=== PATIENT | female | born 1990 | race American Indian/Alaskan Native ===

== ENCOUNTER 2019-01-04 14:50 | Outpatient (CLI) | payer OTHER, MEDICAID ==
[2019-01-04 15:56] LABS: Hematocrit 32.8 % (30.3-42.9); Hemoglobin 11.3 gm/dl (10.1-14.3); Mean Corpuscular HGB Conc 35 % (30-34); Mean Corpuscular Volume 77 fl (79-97); Platelet Count 250 K/mm3 (140-440); Red Blood Count 4.26 M/mm3 (3.65-5.03); Red Cell Distribution Width 13.9 % (13.2-15.2)
[2019-01-04] MEDS ORDERED: LACTATED RINGERS 500 ML IV ONE (16:29)
[2019-01-04 16:33] LABS: Alanine Aminotransferase 12 units/L (7-56); Uric Acid 4.1 mg/dL (3.5-7.6)
[2019-01-04 17:01] LABS: Bilirubin,Urine NEG (Negative); Blood,Urine SM (Negative); Color,Urine Yellow (Yellow); Mucus,Urine FEW /HPF; Protein,Urine <15 mg/dL mg/dL (Negative); RBC,Urine < 1.0 /HPF (0.0-6.0); Urobilinogen,Urine < 2.0 mg/dL (<2.0)
[2019-01-04 17:04] VITALS: BP 136/84
== END 2019-01-04 17:31 | disposition home or self-care (01) ==
LOC: TRG 14:50
PROVIDERS: ATTEND Obstetrics & Gynecology
DX: O47.02 False labor before 37 completed weeks of gestation, second trimester (principal); O13.3 Gestational [pregnancy-induced] hypertension without significant proteinuria, third trimester; Z3A.26 26 weeks gestation of pregnancy
CPT/HCPCS: 36415; 59025; 81001; 82565; 83615; 84450; 84460; 84550; 85027

== ENCOUNTER 2019-01-16 17:25 | Outpatient (CLI) | payer OTHER, MEDICAID ==
[2019-01-16 19:00] LABS: Amorphous Crystals,Urine 1+; Bacteria,Urine 2+ /HPF (Negative); Bilirubin,Urine NEG (Negative); Blood,Urine SM (Negative); Color,Urine Yellow (Yellow); Mucus,Urine FEW /HPF; Protein,Urine <15 mg/dL mg/dL (Negative); Urobilinogen,Urine < 2.0 mg/dL (<2.0); WBC,Urine < 1.0 /HPF (0.0-6.0)
[2019-01-16 19:38] LABS: Hematocrit 34.5 % (30.3-42.9); Hemoglobin 11.8 gm/dl (10.1-14.3); Mean Corpuscular HGB Conc 34 % (30-34); Mean Corpuscular Volume 77 fl (79-97); Platelet Count 271 K/mm3 (140-440); Red Cell Distribution Width 13.8 % (13.2-15.2)
[2019-01-16 20:01] LABS: Alanine Aminotransferase 14 units/L (7-56); Uric Acid 4.6 mg/dL (3.5-7.6)
[2019-01-16 21:43] VITALS: BP 139/63
== END 2019-01-16 21:58 | disposition home or self-care (01) ==
LOC: TRG 17:25
PROVIDERS: ATTEND Obstetrics & Gynecology
DX: O47.03 False labor before 37 completed weeks of gestation, third trimester (principal); O13.3 Gestational [pregnancy-induced] hypertension without significant proteinuria, third trimester; O24.410 Gestational diabetes mellitus in pregnancy, diet controlled; Z3A.28 28 weeks gestation of pregnancy
CPT/HCPCS: 36415; 81001; 82565; 83615; 84450; 84460; 84550; 85027

== ENCOUNTER 2019-02-07 18:25 | Inpatient (IN) | payer OTHER, MEDICAID ==
[2019-02-07] MEDS ORDERED: ZOFRAN IV PRN (19:22)
[2019-02-07] MEDS ORDERED: COLACE PO PRN (19:22)
[2019-02-07] MEDS ORDERED: TYLENOL PO PRN (19:22)
[2019-02-07] MEDS ORDERED: MAGNESIUM SULFATE 4GM/100ML 4 GM/100 ML BAG IV ONE (19:22)
--- NOTE | 2019-02-07 19:32 | History and Physical Report ---
History of Present Illness Date of examination: 02/07/19 (admitted for CHTN/PreE) History of present illness: EDC Confirmation: 04/06/2019 Gestational Age: 7 5/7 weeks Past History : 3 Term Births: 0 Premature Births: 1 Living Children: 1 Para: 1 Mult. Births: 0 Prev : 1 Prev. attempt? none Aborta: 1 Elect. Ab: 1 Spont. Ab: 0 Ectopics: 0 # 1 Delivery date: 2006 Delivery type: EAB # 2 Delivery date: 11/13/2011 Weeks Gestation: 35 labor: yes Delivery type: Hours of labor: 6 Anesthesia type: Spinal Delivery location: [facility] Infant Sex: female weight: 6.44 Name: Michele Comments: gestational diabetes, pre-eclampsia/eclampsia Risk Factors: Smoked Tobacco Use: Never smoker Smokeless Tobacco Use: Never Passive smoke exposure: no Drug use: no HIV high-risk behavior: low risk Alcohol use: no Seatbelt use: preg-mortgage counselor % Dietary Counseling: pn yes Past Medical History: Reviewed history from 04/28/2016 and no changes required: Crohn's Disease--just dx 02/2011 Asthma-last inhaler use 2013 GDM used glyburide PIH with last delivery CHTN- HCTZ last taken in June 2018 Past Surgical History: Reviewed history from 11/13/2011 and no changes required: (11/13/2011) Past Medical History Surgery (Non-telehealth director): (11/13/2011) Abnormal PAP: negative GABRIELLA Exposure: negative Infertility: negative Uterine Anomaly: negative Uterine Surgery (not C/S): negative Other Gynecologic Problems: negative Social Hx: Patient is single no etoh, no illicit drug use, no tobacco use Smoking History: Patient has never smoked. Infection History Hx of STD: chlamydia HIV Risk Eval: low risk Hepatitis B Risk Eval: low risk Personal hx. of genital herpes: no Partner hx. of genital herpes: no Rash, Viral, or Febrile illness since last LMP? no Varicella/Chicken Pox Status: Previous Disease Infection History Comments: chlamydia 2018 Genetic History Congenital Heart Defect: Mom: no Dad: no Candido Disease: Mom: no Dad: no Thalassemia Mom: no Dad: no Neural Tube Defect Mom: no Dad: no Down's Syndrome Mom: no Dad: no Alvin-Sachs Mom: no Dad: no Sickle Cell Disease/Trait Dad: no Hemophilia Mom: no Dad: no Muscular Dystrophy Mom: no Dad: no Cystic Fibrosis Mom: no Dad: no Dieudonne Chorea Mom: no Dad: no Mental Retardation Mom: no Dad: no Fragile X Mom: no Dad: no Other Genetic/Chromosomal Disorder Mom: no Dad: no Child w/other defect Mom: no Dad: no Comments/Counseling: + sickle cell trait Enviromental Exposures Enviromental Exposures Reviewed Xray Exposure: no Medication, drug, or alcohol use since LMP: no Chemical/Other Exposure: no Exposure to Cat Liter: no Hx of Parvovirus (Fifth Disease): no Occupational Exposure to Children: none FALSECurrent Allergies (reviewed today): * GLYBURIDE (Critical) * SEAFOOD (Critical) Past History - Obstetrical History Expected Date of Delivery: 04/06/19 Actual Gestation: 31 Week(s) 5 Day(s) : 3 Para: 1 Hx # Term Pregnancies: 0 Number of Pregnancies: 1 ( section PreE GDM) Spontaneous Abortions: 0 Induced : 1 Number of Living Children: 1 Medications and Allergies Allergies Allergy/AdvReac Type Severity Reaction Status Date / Time glyburide Allergy Rash Verified 02/07/19 20:17 shellfish derived AdvReac Severe Anaphylaxis Verified 01/04/19 15:28 Home Medications Medication Instructions Recorded Confirmed Last Taken Type Labetalol [Labetalol 200mg TAB] 200 mg PO BID 01/16/19 01/16/19 01/16/19 10:00 History Active Meds: Active Medications Acetaminophen (Tylenol) 650 mg PO Q4H PRN PRN Reason: Pain MILD(1-3)/Fever >100.5/ARRIAZA Betamethasone Acet/Betameth SodPhos (Celestone Soluspan) 12 mg IM Q24HR JOVANI Stop: 02/08/19 10:01 Docusate Sodium (Colace) 100 mg PO Q12H PRN PRN Reason: Constipation Magnesium Sulfate (Magnesium Sulfate 4gm/100ml) 4 gm in 100 mls @ 300 mls/hr IV ONCE ONE Stop: 02/07/19 19:41 Magnesium Sulfate (Magnesium Sulfate 40gm/1000ml) 40 gm in 1,000 mls @ 50 mls/hr IV DIRECT JOVANI Lactated Ringer's (Lactated Ringers) 1,000 mls @ 125 mls/hr IV DIRECT JOVANI Multivitamins/Iron/Calcium ( Vitamin) 1 each PO QDAY JOVANI Ondansetron HCl (Zofran) 4 mg IV Q6H PRN PRN Reason: Nausea And Vomiting Zolpidem Tartrate (Ambien) 10 mg PO ONCE PRN PRN Reason: Sleep - Vital Signs Vital signs: Vital Signs Pulse BP 100 H 164/89 02/07/19 19:01 02/07/19 19:01 Temp Pulse Resp BP Pulse Ox 94 H 16 175/95 02/07/19 19:24 02/07/19 19:10 02/07/19 19:24 - Physical Exam Breasts: Positive: deferred Cardiovascular: Regular rate, Normal S1, Normal S2 Lungs: Positive: Clear to auscultation Abdomen: Positive: normal appearance, soft, normal bowel sounds. Negative: distention, tenderness Genitourinary (Female): Positive: normal external genitalia Vulva: both: normal Vagina: Positive: normal moisture. Negative: discharge Cervix: Negative: lesion, discharge Uterus: Positive: normal size, normal contour Adnexa: both: normal Anus/Rectum: Positive: normal perianal skin, heme negative. Negative: rectal mass, hemorrhoids Extremities: Positive: edema Deep Tendon Reflex Grade: Normal but brisk +3 - Obstetrical FHR: category 1 (deminished variablity) Uterine Contraction Monitor Mode: External Results Result Diagrams: 02/07/19 19:50 02/07/19 19:50 All other labs normal. HBsAg Screen Negative Negative *1 RPR Non Reactive Non Reactive *2 Rubella Antibodies, IgG [L] <0.90 index Immune >0.99 *3 Non-immune <0.90 Equivocal 0.90 - 0.99 Immune >0.99 ABO Grouping O *4 Rh Factor Positive *5 Please note: Prior records for this patient's ABO / Rh type are not available for additional verification. Antibody Screen Negative Negative *6 WBC [H] 11.7 x10E3/uL 3.4-10.8 *7 RBC 4.52 x10E6/uL 3.77-5.28 *8 Hemoglobin 11.9 g/dL 11.1-15.9 *9 Hematocrit 35.8 % 34.0-46.6 *10 MCV 79 fL 79-97 *11 MCH [L] 26.3 pg 26.6-33.0 *12 MCHC 33.2 g/dL 31.5-35.7 *13 RDW 14.3 % 12.3-15.4 *14 Platelets 310 x10E3/uL 150-379 *15 Neutrophils 70 % Not Estab. *16 Lymphs 22 % Not Estab. *17 Monocytes 6 % Not Estab. *18 Eos 2 % Not Estab. *19 Basos 0 % Not Estab. *20 ! Immature Cells <No Reported Value> *21 Neutrophils (Absolute) [H] 8.1 x10E3/uL 1.4-7.0 *22 Lymphs (Absolute) 2.6 x10E3/uL 0.7-3.1 *23 Monocytes(Absolute) 0.7 x10E3/uL 0.1-0.9 *24 Eos (Absolute) 0.3 x10E3/uL 0.0-0.4 *25 Baso (Absolute) 0.0 x10E3/uL 0.0-0.2 *26 ! Immature Granulocytes 0 % Not Estab. *27 ! Immature Grans (Abs) 0.0 x10E3/uL 0.0-0.1 *28 ! NRBC <No Reported Value> *29 Hematology Comments: <No Reported Value> *30 Tests: (2) Panel 727996 (307497) HIV Screen 4th Generation wRfx Non Reactive Non Reactive *31 Tests: (3) Gest. Diabetes 1-Hr Screen (152218) ! Gestational Diabetes Screen [H] 144 mg/dL 65-139 *32 According to ADA, a glucose threshold of >139 mg/dL after 50-gram load identifies approximately 80% of women with gestational diabetes mellitus, while the sensitivity is further increased to approximately 90% by a threshold of >129 mg/dL. Tests: (4) HCV Ab w/Rflx to Verification (392046) ! HCV Ab <0.1 s/co ratio 0.0-0.9 *33 Tests: (5) Comment: ([id number]) ! Comment: SPRCS *34 Non reactive HCV antibody screen is consistent with no HCV infection, unless recent infection is suspected or other evidence exists to indicate HCV infection. Tests: (6) Urine Culture, Routine (290651) Urine Culture, Routine Final report *35 Tests: (7) Result ([id number]) ! Result 1 MUG *36 Mixed urogenital khris 10,000-25,000 colony forming units per mL Assessment and Plan 29yo @ 31 weeks for admission for PreE eval with chronic hypertension. Pt has GDM oral meds. previous section. aware of admission. Orders in EMR. will see pt in AM. - Patient Problems (1) 31 weeks gestation of Onset Date: ~02/07/19 Current Visit: Yes Status: Acute (2) Gestational diabetes mellitus (GDM) during controlled on oral hypoglycemic therapy Current Visit: Yes Status: Acute Plan to address problem: will continue metformin 500mg BID BS fasting and 2hPP X 3 (3) Pre-eclampsia Onset Date: ~02/07/19 Current Visit: Yes Status: Acute Qualifiers: Trimester: third trimester Qualified Code(s): O14.93 - Unspecified pre-eclampsia, third trimester Plan to address problem: Pt sent from [facility] for PIH evaluation BPs on admission 160/90 Decision to admit MGSO4 for neuro protection, continue Labetalol increased to 200mg TID per , collect a 24hr urine. PIH labs drawn. aware of adm ission. (4) Previous section Onset Date: ~02/07/19 Current Visit: Yes Status: Acute Plan to address problem: Pt is aware that if BP cannot be controlled we will move forward with delivery Repeat C/S
[2019-02-07] MEDS ORDERED: CELESTONE SOLUSPAN IM SCH (20:00)
[2019-02-07 20:15] LABS: Hemoglobin 12.4 gm/dl (10.1-14.3); Mean Corpuscular HGB Conc 35 % (30-34); Mean Corpuscular Hemoglobin 26 pg (28-32); Mean Corpuscular Volume 77 fl (79-97); Platelet Count 251 K/mm3 (140-440); Red Cell Distribution Width 14.4 % (13.2-15.2)
[2019-02-07 20:32] LABS: Albumin 3.4 g/dL (3.9-5); BUN/Creatinine Ratio 12; Blood Urea Nitrogen 6 mg/dL (7-17); Hemolysis Index 97; Uric Acid 5.9 mg/dL (3.5-7.6)
[2019-02-07 20:34] LABS: Amorphous Crystals,Urine Few; Bilirubin,Urine NEG (Negative); Blood,Urine MOD (Negative); Color,Urine Yellow (Yellow); Mucus,Urine FEW /HPF; Urobilinogen,Urine < 2.0 mg/dL (<2.0)
[2019-02-07] MEDS: NORMODYNE PO SCH ×2 (21:13→21:29)
[2019-02-07] MEDS: LACTATED RINGERS 1,000 ML IV SCH (21:13)
[2019-02-07] MEDS: MAGNESIUM SULFATE 40GM/1000ML 40 GM/1,000 ML BAG IV SCH (21:37)
[2019-02-07 21:40] LABS: Alanine Aminotransferase 14 units/L (7-56)
[2019-02-07] MEDS ORDERED: REGLAN PO SCH (22:00)
[2019-02-07] MEDS ORDERED: APRESOLINE IV ONE ×2 (22:00→23:30)
[2019-02-07] MEDS: AMBIEN PO PRN (23:42)
[2019-02-08] MEDS ORDERED: NORMODYNE PO SCH (07:04)
--- NOTE | 2019-02-08 07:49 | Consultation ---
Past History - Obstetrical History : 3 Medications and Allergies Allergies Allergy/AdvReac Type Severity Reaction Status Date / Time glyburide Allergy Rash Verified 02/07/19 20:17 shellfish derived AdvReac Severe Anaphylaxis Verified 01/04/19 15:28 Home Medications Medication Instructions Recorded Confirmed Last Taken Type Labetalol [Labetalol 200mg TAB] 200 mg PO BID 01/16/19 01/16/19 01/16/19 10:00 History Active Meds: Active Medications Acetaminophen (Tylenol) 650 mg PO Q4H PRN PRN Reason: Pain MILD(1-3)/Fever >100.5/ARRIAZA Betamethasone Acet/Betameth SodPhos (Celestone Soluspan) 12 mg IM Q24H JOVANI Stop: 02/08/19 20:01 Last Admin: 02/07/19 21:14 Dose: 12 mg Documented by: Docusate Sodium (Colace) 100 mg PO Q12H PRN PRN Reason: Constipation Magnesium Sulfate (Magnesium Sulfate 40gm/1000ml) 40 gm in 1,000 mls @ 50 mls/hr IV DIRECT JOVANI Last Admin: 02/07/19 21:37 Dose: 2 gm/hr, 50 mls/hr Documented by: Lactated Ringer's (Lactated Ringers) 1,000 mls @ 125 mls/hr IV DIRECT JOVANI Last Admin: 02/07/19 21:13 Dose: 125 mls/hr Documented by: Labetalol HCl (Normodyne) 300 mg PO TID [facility] Metformin HCl (Glucophage) 500 mg PO BIDDIAB [facility] Multivitamins/Iron/Calcium ( Vitamin) 1 each PO QDAY [facility] Ondansetron HCl (Zofran) 4 mg IV Q6H PRN PRN Reason: Nausea And Vomiting Zolpidem Tartrate (Ambien) 10 mg PO ONCE PRN PRN Reason: Sleep Last Admin: 02/07/19 23:42 Dose: 10 mg Documented by: - Vital Signs Vital signs: Vital Signs Pulse BP 100 H 164/89 02/07/19 19:01 02/07/19 19:01 Temp Pulse Resp BP Pulse Ox 114 H 18 165/91 100 02/08/19 07:46 02/08/19 04:22 02/08/19 07:29 02/08/19 07:46 Results Result Diagrams: 02/07/19 19:50 02/07/19 19:50 Abnormal lab results 02/07/19 02/07/19 02/07/19 Range/Units 19:50 19:50 19:50 WBC 13.9 H (4.5-11.0) K/mm3 MCV 77 L (79-97) fl MCH 26 L (28-32) pg MCHC 35 H (30-34) % Sodium 134 L (137-145) mmol/L BUN 6 L (7-17) mg/dL Creatinine 0.5 L (0.7-1.2) mg/dL Glucose 124 H (65-100) mg/dL Magnesium (1.7-2.3) mg/dL Lactate Dehydrogenase 282 H (91-180) units/L Albumin 3.4 L (3.9-5) g/dL U Epithel Cells (Auto) 23.0 H (0-13.0) /HPF 02/08/19 Range/Units 06:35 WBC (4.5-11.0) K/mm3 MCV (79-97) fl MCH (28-32) pg MCHC (30-34) % Sodium (137-145) mmol/L BUN (7-17) mg/dL Creatinine (0.7-1.2) mg/dL Glucose (65-100) mg/dL Magnesium 4.30 H (1.7-2.3) mg/dL Lactate Dehydrogenase (91-180) units/L Albumin (3.9-5) g/dL U Epithel Cells (Auto) (0-13.0) /HPF All other labs normal. Assessment and Plan Pt seen Full consult to follow
[2019-02-08] MEDS: GLUCOPHAGE PO SCH ×2 (07:57→17:13)
[2019-02-08] MEDS: NORMODYNE PO SCH ×3 (08:30→19:47)
[2019-02-08] MEDS ORDERED: APRESOLINE IV PRN (09:01)
[2019-02-08] MEDS ORDERED: TYLENOL PO PRN (09:05)
--- NOTE | 2019-02-08 09:05 | Progress Note ---
Assessment and Plan - Patient Problems (1) 31 weeks gestation of Onset Date: ~02/07/19 Current Visit: Yes Status: Acute Plan to address problem: Second dose of BMZ due at 2145 tonight (2) Chronic hypertension with exacerbation during in third trimester Current Visit: Yes Status: Acute Plan to address problem: Labetalol increased to 300mg tid, patient to only take medication distributed by pharmacy, not home medication; unless confirmed by ID of medication confirmed by pharmacy 24 hour urine in progress (3) Gestational diabetes mellitus (GDM) during controlled on oral hypoglycemic therapy Current Visit: Yes Status: Acute Plan to address problem: Continue metformin (4) Group B Streptococcus carrier state affecting Current Visit: Yes Status: Acute (5) Hemoglobin C trait Current Visit: Yes Status: Acute (6) History of Crohn's disease Current Visit: Yes Status: Acute (7) Previous section Onset Date: ~02/07/19 Current Visit: Yes Status: Acute Subjective - Subjective Date of service: 02/08/19 Principal diagnosis: IUP@31 6/7wga, CHTN uncontrolled, GDM Interval history: Complains of slight ARRIAZA, no medication given, no RUQ pain or visual changes Patient reports: movement normal, no loss of fluid, no vaginal bleeding, no contractions Objective - Vital Signs Vital Signs: Vital Signs - 12hr 02/07/19 02/07/19 02/07/19 21:08 21:15 21:19 Temperature Pulse Rate 98 H 96 H 93 H Respiratory Rate Blood Pressure 145/94 185/98 189/98 O2 Sat by Pulse Oximetry 02/07/19 02/07/19 02/07/19 21:23 21:38 21:44 Temperature Pulse Rate 92 H 90 92 H Respiratory Rate Blood Pressure 186/115 165/100 167/97 O2 Sat by Pulse Oximetry 02/07/19 02/07/19 02/07/19 21:48 21:57 22:04 Temperature Pulse Rate 91 H 89 88 Respiratory Rate Blood Pressure 198/119 170/101 163/98 O2 Sat by Pulse Oximetry 02/07/19 02/07/19 02/07/19 22:19 22:35 22:39 Temperature Pulse Rate 88 92 H 87 Respiratory Rate Blood Pressure 154/95 186/124 182/118 O2 Sat by Pulse Oximetry 02/07/19 02/07/19 02/07/19 22:49 23:04 23:19 Temperature Pulse Rate 90 91 H 93 H Respiratory Rate Blood Pressure 187/115 168/114 160/121 O2 Sat by Pulse Oximetry 02/07/19 02/07/19 02/07/19 23:21 23:22 23:26 Temperature Pulse Rate 94 H 95 H Respiratory 20 Rate Blood Pressure O2 Sat by Pulse 99 100 Oximetry 02/07/19 02/07/19 02/07/19 23:31 23:36 23:41 Temperature Pulse Rate 94 H 99 H 94 H Respiratory Rate Blood Pressure 160/121 O2 Sat by Pulse 100 100 100 Oximetry 02/07/19 02/07/19 02/07/19 23:46 23:51 23:55 Temperature Pulse Rate 95 H 94 H 90 Respiratory Rate Blood Pressure 142/90 O2 Sat by Pulse 100 100 Oximetry 02/07/19 02/08/19 02/08/19 23:56 00:01 00:06 Temperature Pulse Rate 94 H 92 H 85 Respiratory Rate Blood Pressure O2 Sat by Pulse 100 100 100 Oximetry 02/08/19 02/08/19 02/08/19 00:11 00:16 00:21 Temperature Pulse Rate 94 H 96 H 101 H Respiratory Rate Blood Pressure 184/100 O2 Sat by Pulse 100 99 100 Oximetry 02/08/19 02/08/19 02/08/19 00:22 00:26 00:31 Temperature Pulse Rate 95 H 101 H Respiratory 20 Rate Blood Pressure O2 Sat by Pulse 97 98 Oximetry 02/08/19 02/08/19 02/08/19 00:36 00:41 00:46 Temperature Pulse Rate 100 H 103 H 95 H Respiratory Rate Blood Pressure O2 Sat by Pulse 100 100 100 Oximetry 02/08/19 02/08/19 02/08/19 00:51 00:56 01:01 Temperature Pulse Rate 101 H 100 H 101 H Respiratory Rate Blood Pressure O2 Sat by Pulse 100 100 97 Oximetry 02/08/19 02/08/19 02/08/19 01:06 01:11 01:16 Temperature Pulse Rate 102 H 97 H 107 H Respiratory Rate Blood Pressure O2 Sat by Pulse 98 100 100 Oximetry 02/08/19 02/08/19 02/08/19 01:21 01:22 01:26 Temperature Pulse Rate 106 H 107 H Respiratory 20 Rate Blood Pressure 138/82 O2 Sat by Pulse 97 97 Oximetry 02/08/19 02/08/19 02/08/19 01:31 01:36 01:41 Temperature Pulse Rate 97 H 93 H 92 H Respiratory Rate Blood Pressure O2 Sat by Pulse 100 97 100 Oximetry 02/08/19 02/08/19 02/08/19 01:46 01:51 01:56 Temperature Pulse Rate 92 H 89 97 H Respiratory Rate Blood Pressure O2 Sat by Pulse 99 99 99 Oximetry 02/08/19 02/08/19 02/08/19 02:01 02:06 02:11 Temperature Pulse Rate 100 H 100 H 99 H Respiratory Rate Blood Pressure O2 Sat by Pulse 100 99 99 Oximetry 02/08/19 02/08/19 02/08/19 02:16 02:17 02:21 Temperature Pulse Rate 93 H 104 H 98 H Respiratory Rate Blood Pressure 144/78 O2 Sat by Pulse 100 94 100 Oximetry 02/08/19 02/08/19 02/08/19 02:22 02:26 02:31 Temperature Pulse Rate 87 90 Respiratory 20 Rate Blood Pressure O2 Sat by Pulse 99 99 Oximetry 02/08/19 02/08/19 02/08/19 02:36 02:41 02:46 Temperature Pulse Rate 101 H 99 H 104 H Respiratory Rate Blood Pressure O2 Sat by Pulse 97 99 99 Oximetry 02/08/19 02/08/19 02/08/19 02:51 02:56 03:01 Temperature Pulse Rate 92 H 107 H 107 H Respiratory Rate Blood Pressure O2 Sat by Pulse 100 97 94 Oximetry 02/08/19 02/08/19 02/08/19 03:06 03:09 03:11 Temperature Pulse Rate 99 H 105 H 84 Respiratory Rate Blood Pressure O2 Sat by Pulse 100 90 100 Oximetry 02/08/19 02/08/19 02/08/19 03:15 03:16 03:21 Temperature Pulse Rate 105 H 111 H 106 H Respiratory Rate Blood Pressure 169/105 O2 Sat by Pulse 90 85 96 Oximetry 02/08/19 02/08/19 02/08/19 03:22 03:23 03:26 Temperature Pulse Rate 105 H 106 H Respiratory 18 Rate Blood Pressure O2 Sat by Pulse 88 96 Oximetry 02/08/19 02/08/19 02/08/19 03:29 03:31 03:34 Temperature Pulse Rate 104 H 111 H 105 H Respiratory Rate Blood Pressure O2 Sat by Pulse 84 87 94 Oximetry 02/08/19 02/08/19 02/08/19 03:36 03:39 03:41 Temperature Pulse Rate 90 103 H 117 H Respiratory Rate Blood Pressure 199/114 O2 Sat by Pulse 97 99 Oximetry 02/08/19 02/08/19 02/08/19 03:43 03:46 03:51 Temperature Pulse Rate 108 H 101 H 99 H Respiratory Rate Blood Pressure 144/89 O2 Sat by Pulse 100 100 Oximetry 02/08/19 02/08/19 02/08/19 03:56 04:01 04:06 Temperature Pulse Rate 103 H 105 H 104 H Respiratory Rate Blood Pressure O2 Sat by Pulse 100 98 99 Oximetry 02/08/19 02/08/19 02/08/19 04:11 04:16 04:21 Temperature Pulse Rate 104 H 103 H 106 H Respiratory Rate Blood Pressure O2 Sat by Pulse 99 99 100 Oximetry 02/08/19 02/08/19 02/08/19 04:22 04:26 04:31 Temperature Pulse Rate 106 H 102 H 114 H Respiratory 18 Rate Blood Pressure 197/110 185/96 O2 Sat by Pulse 97 100 Oximetry 02/08/19 02/08/19 02/08/19 04:36 04:41 04:46 Temperature Pulse Rate 104 H 102 H 105 H Respiratory Rate Blood Pressure O2 Sat by Pulse 99 99 98 Oximetry 02/08/19 02/08/19 02/08/19 04:51 04:56 05:01 Temperature Pulse Rate 105 H 100 H 105 H Respiratory Rate Blood Pressure O2 Sat by Pulse 99 99 96 Oximetry 02/08/19 02/08/19 02/08/19 05:06 05:11 05:16 Temperature Pulse Rate 119 H 106 H 108 H Respiratory Rate Blood Pressure O2 Sat by Pulse 99 98 97 Oximetry 02/08/19 02/08/19 02/08/19 05:21 05:26 05:31 Temperature Pulse Rate 104 H 107 H 106 H Respiratory Rate Blood Pressure 163/93 O2 Sat by Pulse 99 100 100 Oximetry 02/08/19 02/08/19 02/08/19 05:36 05:41 05:43 Temperature Pulse Rate 101 H 102 H 99 H Respiratory Rate Blood Pressure O2 Sat by Pulse 100 96 93 Oximetry 02/08/19 02/08/19 02/08/19 05:46 05:51 05:52 Temperature Pulse Rate 106 H 106 H 104 H Respiratory Rate Blood Pressure O2 Sat by Pulse 97 95 94 Oximetry 02/08/19 02/08/19 02/08/19 05:56 06:01 06:06 Temperature Pulse Rate 96 H 100 H 97 H Respiratory Rate Blood Pressure O2 Sat by Pulse 100 93 100 Oximetry 02/08/19 02/08/19 02/08/19 06:11 06:16 06:21 Temperature Pulse Rate 107 H 109 H 110 H Respiratory Rate Blood Pressure 150/96 O2 Sat by Pulse 99 100 100 Oximetry 02/08/19 02/08/19 02/08/19 06:26 06:31 06:36 Temperature Pulse Rate 108 H 111 H 111 H Respiratory Rate Blood Pressure O2 Sat by Pulse 100 100 99 Oximetry 02/08/19 02/08/19 02/08/19 06:41 06:46 06:51 Temperature Pulse Rate 114 H 117 H 104 H Respiratory Rate Blood Pressure O2 Sat by Pulse 99 97 99 Oximetry 02/08/19 02/08/19 02/08/19 06:56 07:01 07:06 Temperature Pulse Rate 103 H 104 H 104 H Respiratory Rate Blood Pressure O2 Sat by Pulse 100 100 99 Oximetry 02/08/19 02/08/19 02/08/19 07:11 07:16 07:21 Temperature Pulse Rate 103 H 106 H 102 H Respiratory Rate Blood Pressure O2 Sat by Pulse 99 98 99 Oximetry 02/08/19 02/08/19 02/08/19 07:22 07:26 07:29 Temperature Pulse Rate 105 H 112 H 108 H Respiratory Rate Blood Pressure 201/133 176/91 165/91 O2 Sat by Pulse 100 Oximetry 02/08/19 02/08/19 02/08/19 07:31 07:36 07:41 Temperature Pulse Rate 105 H 106 H 115 H Respiratory Rate Blood Pressure O2 Sat by Pulse 100 100 100 Oximetry 02/08/19 02/08/19 02/08/19 07:46 07:51 07:54 Temperature 97.9 F Pulse Rate 114 H 110 H Respiratory Rate Blood Pressure O2 Sat by Pulse 100 100 Oximetry 02/08/19 02/08/19 02/08/19 07:56 08:01 08:06 Temperature Pulse Rate 107 H 104 H 110 H Respiratory Rate Blood Pressure O2 Sat by Pulse 100 100 100 Oximetry 02/08/19 02/08/1919 08:11 08:16 08:21 Temperature Pulse Rate 110 H 110 H 106 H Respiratory Rate Blood Pressure O2 Sat by Pulse 100 100 100 Oximetry 02/08/19 02/08/19 02/08/19 08:24 08:26 08:31 Temperature Pulse Rate 111 H 115 H 109 H Respiratory Rate Blood Pressure 175/91 161/94 O2 Sat by Pulse 100 99 Oximetry 02/08/19 02/08/19 02/08/19 08:36 08:41 08:46 Temperature Pulse Rate 111 H 115 H 120 H Respiratory Rate Blood Pressure O2 Sat by Pulse 100 99 99 Oximetry 02/08/19 02/08/19 02/08/19 08:51 08:56 09:01 Temperature Pulse Rate 121 H 115 H 116 H Respiratory Rate Blood Pressure O2 Sat by Pulse 99 100 100 Oximetry - Exam Breasts: deferred Cardiovascular: Other (regular rhythm, tachycardia) Lungs: Clear to auscultation, Normal air movement Abdomen: Present: soft, other (obese). Absent: distention, tenderness Uterus: Present: fundal height above umbilicus. Absent: tenderness FHR: category 1 Uterine Contraction Monitor Mode: External Uterine Contraction Pattern: Absent Extremities: edema (trace) Deep Tendon Reflex Grade: Normal +2 - Labs Labs: Abnormal Labs 02/07/19 02/07/19 02/07/19 19:50 19:50 19:50 WBC 13.9 H MCV 77 L MCH 26 L MCHC 35 H Sodium 134 L BUN 6 L Creatinine 0.5 L Glucose 124 H Magnesium Lactate Dehydrogenase 282 H Albumin 3.4 L U Epithel Cells (Auto) 23.0 H 02/08/19 06:35 WBC MCV MCH MCHC Sodium BUN Creatinine Glucose Magnesium 4.30 H Lactate Dehydrogenase Albumin U Epithel Cells (Auto) Laboratory Results - last 24 hr 02/07/19 02/07/19 02/07/19 19:50 19:50 19:50 WBC 13.9 H RBC 4.70 Hgb 12.4 Hct 36.0 MCV 77 L MCH 26 L MCHC 35 H RDW 14.4 Plt Count 251 Sodium 134 L Potassium 4.1 Chloride 99.3 Carbon Dioxide 22 Anion Gap 17 BUN 6 L Creatinine 0.5 L Estimated GFR > 60 BUN/Creatinine Ratio 12 Glucose 124 H Uric Acid 5.9 Calcium 10.0 Magnesium Total Bilirubin 0.50 AST 28 ALT 14 Alkaline Phosphatase 86 Lactate Dehydrogenase 282 H Total Protein 7.2 Albumin 3.4 L Albumin/Globulin Ratio 0.9 Urine Color Yellow Urine Turbidity Cloudy Urine pH 7.0 Ur Specific [place] 1.017 Urine Protein 30 mg/dl Urine Glucose (UA) Neg Urine Ketones 20 Urine Blood Mod Urine Nitrite Neg Urine Bilirubin Neg Urine Urobilinogen < 2.0 Ur Leukocyte Esterase Neg Urine WBC (Auto) 1.0 Urine RBC (Auto) 18.0 U Epithel Cells (Auto) 23.0 H Amorphous Crystals Few Urine Mucus Few Blood Type Antibody Screen 02/07/19 02/07/19 02/08/19 19:50 21:00 06:35 WBC RBC Hgb Hct MCV MCH MCHC RDW Plt Count Sodium Potassium Chloride Carbon Dioxide Anion Gap BUN Creatinine Estimated GFR BUN/Creatinine Ratio Glucose Uric Acid Calcium Magnesium 1.70 4.30 H Total Bilirubin AST ALT Alkaline Phosphatase Lactate Dehydrogenase Total Protein Albumin Albumin/Globulin Ratio Urine Color Urine Turbidity Urine pH Ur Specific [place] Urine Protein Urine Glucose (UA) Urine Ketones Urine Blood Urine Nitrite Urine Bilirubin Urine Urobilinogen Ur Leukocyte Esterase Urine WBC (Auto) Urine RBC (Auto) U Epithel Cells (Auto) Amorphous Crystals Urine Mucus Blood Type O POSITIVE Antibody Screen Negative
[2019-02-08] MEDS: PRENATAL VITAMIN PO SCH (09:34)
[2019-02-08] MEDS: REGLAN IV SCH ×3 (09:34→21:56)
[2019-02-08] MEDS: LACTATED RINGERS 1,000 ML IV SCH (19:50)
[2019-02-08] MEDS: MAGNESIUM SULFATE 40GM/1000ML 40 GM/1,000 ML BAG IV SCH (19:50)
[2019-02-08] MEDS: AMBIEN PO PRN (22:04)
[2019-02-08] MEDS ORDERED: CELESTONE SOLUSPAN IM SCH (22:15)
[2019-02-09] MEDS: REGLAN IV SCH (03:43)
[2019-02-09] MEDS: NORMODYNE PO SCH ×3 (08:10→21:12)
[2019-02-09] MEDS: GLUCOPHAGE PO SCH ×2 (08:11→17:41)
[2019-02-09 09:16] LABS: Hematocrit 35.7 % (30.3-42.9); Hemoglobin 12.2 gm/dl (10.1-14.3); Mean Corpuscular HGB Conc 34 % (30-34); Mean Corpuscular Hemoglobin 26 pg (28-32); Mean Corpuscular Volume 77 fl (79-97); Platelet Count 269 K/mm3 (140-440); Red Blood Count 4.63 M/mm3 (3.65-5.03); Red Cell Distribution Width 14.3 % (13.2-15.2)
[2019-02-09 09:26] LABS: Alanine Aminotransferase 12 units/L (7-56); Uric Acid 6.9 mg/dL (3.5-7.6)
[2019-02-09] MEDS ORDERED: REGLAN PO PRN (10:00)
[2019-02-09] MEDS: PRENATAL VITAMIN PO SCH (11:58)
--- NOTE | 2019-02-09 13:59 | Progress Note ---
Assessment and Plan Patient resting in bed, she reports feeling well, denies any complaints or concerns other that " I want to go home". DWP current POC. Reviewed BPs and lab results. She currently denies any ARRIAZA, visual disturbances, RUQ or epigastric pain, SOB, difficulty breathing, chest pain, or any other complaints. Magnesium currently infusing as ordered. Worley in place draining clear yellow urine. Assessment WNL. Awaiting rounds by [facility] for any changes to current POC. - Patient Problems (1) 32 weeks gestation of Onset Date: ~02/07/19 Current Visit: Yes Status: Acute Plan to address problem: S/p 2nd dose of BMZ 02/08/2019 approx 2200 (2) Chronic hypertension with exacerbation during in third trimester Current Visit: Yes Status: Acute Plan to address problem: Labetalol currently 300mg tid 24 hr TP 540 (3) Gestational diabetes mellitus (GDM) during controlled on oral hypoglycemic therapy Current Visit: Yes Status: Acute Plan to address problem: Continue metformin (4) Group B Streptococcus carrier state affecting Current Visit: Yes Status: Acute (5) Hemoglobin C trait Current Visit: Yes Status: Acute (6) History of Crohn's disease Current Visit: Yes Status: Acute (7) Previous section Onset Date: ~02/07/19 Current Visit: Yes Status: Acute Subjective - Subjective Date of service: 02/09/19 Principal diagnosis: IUP@32 wga, CHTN uncontrolled, GDM Patient reports: movement normal, no new complaints, no loss of fluid, no vaginal bleeding, no contractions Objective - Vital Signs Vital Signs: Vital Signs - 12hr 02/09/19 02/09/19 02/09/19 02:03 02:10 02:52 Temperature 98.6 F Pulse Rate 86 88 Respiratory 16 Rate Blood Pressure 141/77 162/74 02/09/19 02/09/19 02/09/19 03:55 04:54 05:41 Temperature Pulse Rate 93 H 100 H 101 H Respiratory Rate Blood Pressure 152/96 175/106 147/89 02/09/19 02/09/19 02/09/19 05:49 05:52 07:28 Temperature 98.3 F Pulse Rate 87 99 H Respiratory Rate Blood Pressure 149/87 196/102 02/09/19 02/09/19 02/09/19 07:33 07:35 07:52 Temperature 98.3 F Pulse Rate 99 H 105 H Respiratory 18 Rate Blood Pressure 180/94 141/100 02/09/19 02/09/19 02/09/19 08:10 09:52 10:52 Temperature Pulse Rate 105 H 94 H 100 H Respiratory Rate Blood Pressure 141/100 139/82 143/91 02/09/19 02/09/19 02/09/19 11:52 11:56 12:00 Temperature 98.7 F Pulse Rate 99 H 96 H Respiratory 20 Rate Blood Pressure 163/77 150/74 02/09/19 13:52 Temperature Pulse Rate 96 H Respiratory Rate Blood Pressure 145/95 - Exam Cardiovascular: Regular rate, Normal S1, Normal S2 Lungs: Clear to auscultation, Normal air movement Abdomen: Present: normal appearance, soft, normal bowel sounds. Absent: distention, tenderness Uterus: Present: normal FHR: auscultation normal Uterine Contraction Monitor Mode: External Uterine Contraction Pattern: Absent Extremities: normal Deep Tendon Reflex Grade: Normal +2 - Labs Labs: Abnormal Labs 02/07/19 02/07/19 02/07/19 19:50 19:50 19:50 WBC 13.9 H MCV 77 L MCH 26 L MCHC 35 H Sodium 134 L BUN 6 L Creatinine 0.5 L Glucose 124 H POC Glucose Magnesium Lactate Dehydrogenase 282 H Albumin 3.4 L U Epithel Cells (Auto) 23.0 H Ur Total Protein 24 Hr Urine Total Protein 02/07/19 02/08/19 02/08/19 23:30 06:17 06:35 WBC MCV MCH MCHC Sodium BUN Creatinine Glucose POC Glucose 131 H Magnesium 4.30 H Lactate Dehydrogenase Albumin U Epithel Cells (Auto) Ur Total Protein 24 Hr 540.00 H Urine Total Protein 12 H 02/08/19 02/08/19 02/08/19 12:58 13:43 21:16 WBC MCV MCH MCHC Sodium BUN Creatinine Glucose POC Glucose 135 H Magnesium 4.80 H 4.50 H Lactate Dehydrogenase Albumin U Epithel Cells (Auto) Ur Total Protein 24 Hr Urine Total Protein 02/08/19 02/09/19 02/09/19 22:27 03:43 06:06 WBC MCV MCH MCHC Sodium BUN Creatinine Glucose POC Glucose 159 H 163 H Magnesium 5.30 H Lactate Dehydrogenase Albumin U Epithel Cells (Auto) Ur Total Protein 24 Hr Urine Total Protein 02/09/19 02/09/19 08:46 08:46 WBC 15.7 H MCV 77 L MCH 26 L MCHC Sodium BUN Creatinine 0.5 L Glucose POC Glucose Magnesium 5.20 H Lactate Dehydrogenase Albumin U Epithel Cells (Auto) Ur Total Protein 24 Hr Urine Total Protein Laboratory Results - last 24 hr 02/07/19 02/08/19 02/08/19 23:30 06:17 13:43 WBC RBC Hgb Hct MCV MCH MCHC RDW Plt Count Creatinine Estimated GFR POC Glucose 131 H 135 H Uric Acid Magnesium AST ALT Lactate Dehydrogenase Urine Total Volume 4500 Ur Total Protein 24 Hr 540.00 H Urine Total Protein 12 H 02/08/19 02/08/19 02/09/19 21:16 22:27 03:43 WBC RBC Hgb Hct MCV MCH MCHC RDW Plt Count Creatinine Estimated GFR POC Glucose 159 H Uric Acid Magnesium 4.50 H 5.30 H AST ALT Lactate Dehydrogenase Urine Total Volume Ur Total Protein 24 Hr Urine Total Protein 02/09/19 02/09/19 02/09/19 06:06 08:46 08:46 WBC 15.7 H RBC 4.63 Hgb 12.2 Hct 35.7 MCV 77 L MCH 26 L MCHC 34 RDW 14.3 Plt Count 269 Creatinine 0.5 L Estimated GFR > 60 POC Glucose 163 H Uric Acid 6.9 Magnesium 5.20 H AST 12 ALT 12 Lactate Dehydrogenase 146 Urine Total Volume Ur Total Protein 24 Hr Urine Total Protein
[2019-02-09] MEDS: LACTATED RINGERS 1,000 ML IV SCH (14:36)
--- NOTE | 2019-02-09 15:06 | Progress Note ---
Assessment and Plan 1. IUP at 32 0/7 weeks' 2. Essential HTN 3. GDM 1. Continue expectant management 2. Increase labetalol to 400 mg q8h if BP's remain > 160 systolic or 105 diastolic 3. Sliding scale insulin to keep Accucheks <100 mg% fasting, < 140 mg% 2 hours postprandial 4. If 10/09/18 24 hour urine protein concentration no > 12 mg%, patient does not likely have superimposed preeclampsia and may be a candidate for outpatient management if BP's improve 5. BPP q 3-4 days Subjective - Subjective Date of service: 02/09/19 Principal diagnosis: IUP@32 wga, CHTN uncontrolled, GDM Interval history: Feeling well, fetus active Patient reports: movement normal, no new complaints, no loss of fluid, no vaginal bleeding, no contractions Objective - Vital Signs Vital Signs: Vital Signs - 12hr 02/09/19 02/09/19 02/09/19 03:55 04:54 05:41 Temperature Pulse Rate 93 H 100 H 101 H Respiratory Rate Blood Pressure 152/96 175/106 147/89 02/09/19 02/09/19 02/09/19 05:49 05:52 07:28 Temperature 98.3 F Pulse Rate 87 99 H Respiratory Rate Blood Pressure 149/87 196/102 02/09/19 02/09/19 02/09/19 07:33 07:35 07:52 Temperature 98.3 F Pulse Rate 99 H 105 H Respiratory 18 Rate Blood Pressure 180/94 141/100 02/09/19 02/09/19 02/09/19 08:10 09:52 10:52 Temperature Pulse Rate 105 H 94 H 100 H Respiratory Rate Blood Pressure 141/100 139/82 143/91 02/09/19 02/09/19 02/09/19 11:52 11:56 12:00 Temperature 98.7 F Pulse Rate 99 H 96 H Respiratory 20 Rate Blood Pressure 163/77 150/74 02/09/19 02/09/19 02/09/19 13:52 14:09 14:52 Temperature Pulse Rate 96 H 96 H 92 H Respiratory Rate Blood Pressure 145/95 145/95 146/83 - Exam Narrative Exam: Abd soft, nontender; FHT's reactive; DTR 1-2+; labs and Accucheks reviewed: 24 hour urine total protein higher than in 10/09, but given large volume, protein concentration [10/09 value not available] may not have worsened - Labs Labs: Abnormal Labs 02/07/19 02/07/19 02/07/19 19:50 19:50 19:50 WBC 13.9 H MCV 77 L MCH 26 L MCHC 35 H Sodium 134 L BUN 6 L Creatinine 0.5 L Glucose 124 H POC Glucose Magnesium Lactate Dehydrogenase 282 H Albumin 3.4 L U Epithel Cells (Auto) 23.0 H Ur Total Protein 24 Hr Urine Total Protein 02/07/19 02/08/19 02/08/19 23:30 06:17 06:35 WBC MCV MCH MCHC Sodium BUN Creatinine Glucose POC Glucose 131 H Magnesium 4.30 H Lactate Dehydrogenase Albumin U Epithel Cells (Auto) Ur Total Protein 24 Hr 540.00 H Urine Total Protein 12 H 02/08/19 02/08/19 02/08/19 12:58 13:43 21:16 WBC MCV MCH MCHC Sodium BUN Creatinine Glucose POC Glucose 135 H Magnesium 4.80 H 4.50 H Lactate Dehydrogenase Albumin U Epithel Cells (Auto) Ur Total Protein 24 Hr Urine Total Protein 02/08/19 02/09/19 02/09/19 22:27 03:43 06:06 WBC MCV MCH MCHC Sodium BUN Creatinine Glucose POC Glucose 159 H 163 H Magnesium 5.30 H Lactate Dehydrogenase Albumin U Epithel Cells (Auto) Ur Total Protein 24 Hr Urine Total Protein 02/09/19 02/09/19 08:46 08:46 WBC 15.7 H MCV 77 L MCH 26 L MCHC Sodium BUN Creatinine 0.5 L Glucose POC Glucose Magnesium 5.20 H Lactate Dehydrogenase Albumin U Epithel Cells (Auto) Ur Total Protein 24 Hr Urine Total Protein Laboratory Results - last 24 hr 02/07/19 02/08/19 02/08/19 23:30 06:17 13:43 WBC RBC Hgb Hct MCV MCH MCHC RDW Plt Count Creatinine Estimated GFR POC Glucose 131 H 135 H Uric Acid Magnesium AST ALT Lactate Dehydrogenase Urine Total Volume 4500 Ur Total Protein 24 Hr 540.00 H Urine Total Protein 12 H 02/08/19 02/08/19 02/09/19 21:16 22:27 03:43 WBC RBC Hgb Hct MCV MCH MCHC RDW Plt Count Creatinine Estimated GFR POC Glucose 159 H Uric Acid Magnesium 4.50 H 5.30 H AST ALT Lactate Dehydrogenase Urine Total Volume Ur Total Protein 24 Hr Urine Total Protein 02/09/19 02/09/19 02/09/19 06:06 08:46 08:46 WBC 15.7 H RBC 4.63 Hgb 12.2 Hct 35.7 MCV 77 L MCH 26 L MCHC 34 RDW 14.3 Plt Count 269 Creatinine 0.5 L Estimated GFR > 60 POC Glucose 163 H Uric Acid 6.9 Magnesium 5.20 H AST 12 ALT 12 Lactate Dehydrogenase 146 Urine Total Volume Ur Total Protein 24 Hr Urine Total Protein
[2019-02-09] MEDS: AMBIEN PO PRN (21:12)
[2019-02-10] MEDS: GLUCOPHAGE PO SCH (07:42)
[2019-02-10] MEDS: NORMODYNE PO SCH ×3 (07:42→19:57)
--- NOTE | 2019-02-10 11:01 | Progress Note ---
Assessment and Plan Pt doing well, denies ARRIAZA/visual changes or epigastric pain. several elevated b/p's noted over last 12 hours, nurses notes indicate some were taken while the patient laid on the cuff with her arm bent. Will increase labetalol as recommended by Dr. Renteria and continue to closely monitor patient. RN will manually take b/p with patient in sitting position from now on to eliminate the risk of elevation in b/P d/t cuff position. BPP also ordered for to as recommended. monitoring changed from continuos to NST q4h as long as tracing is reactive/CAT 1. Will continue to monitor b/p and consult Dr. Romero. 1. IUP at 32 1/7 weeks' 2. Essential HTN 3. GDM 4. lab results from our office 10/03/18 24h urine TP 433 (19mg) Recommendations per [facility]: 1. Continue expectant management 2. Increase labetalol to 400 mg q8h if BP's remain > 160 systolic or 105 diastolic (increased dose 02/10/19) 3. Sliding scale insulin to keep Accucheks <100 mg% fasting, < 140 mg% 2 hours postprandial (ordered 02/10/19) 4. If 10/09/18 24 hour urine protein concentration no > 12 mg%, patient does not likely have superimposed preeclampsia and may be a candidate for outpatient management if BP's improve 5. BPP q 3-4 days (ordered 02/10/19) - Patient Problems (1) 32 weeks gestation of Current Visit: Yes Status: Acute (2) HTN (hypertension) Current Visit: Yes Status: Acute Qualifiers: Hypertension type: essential hypertension Qualified Code(s): I10 - Essential (primary) hypertension Plan to address problem: Labetalol increased to 400mg PO TID Communication order for RN to call provider for SBP >160 and DBP >105 (3) Gestational diabetes mellitus (GDM) during controlled on oral hypoglycemic therapy Current Visit: Yes Status: Acute Plan to address problem: SS initiated Continue accuchecks and consistent carb diet Subjective - Subjective Date of service: 02/10/19 ( Nut Dehydrator Operator note) Principal diagnosis: IUP@32+1, CHTN, GDM Patient reports: movement normal, no new complaints, no loss of fluid, no vaginal bleeding, no contractions Objective - Vital Signs Vital Signs: Vital Signs - 12hr 02/09/19 02/09/19 02/10/19 23:30 23:50 00:11 Temperature Pulse Rate 96 H 95 H 98 H Blood Pressure 142/84 142/83 173/96 02/10/19 02/10/19 02/10/19 00:30 01:11 01:32 Temperature Pulse Rate 94 H 106 H 85 Blood Pressure 141/81 162/77 137/76 02/10/19 02/10/19 02/10/19 01:51 02:10 02:31 Temperature Pulse Rate 94 H 84 95 H Blood Pressure 156/88 140/75 138/91 02/10/19 02/10/19 02/10/19 02:51 03:12 03:30 Temperature Pulse Rate 88 88 97 H Blood Pressure 139/82 180/88 203/95 02/10/19 02/10/19 02/10/19 03:39 03:51 04:11 Temperature Pulse Rate 81 92 H 87 Blood Pressure 157/76 142/81 160/77 02/10/19 02/10/19 02/10/19 04:30 04:51 05:10 Temperature Pulse Rate 84 80 83 Blood Pressure 145/76 206/103 185/111 02/10/19 02/10/19 02/10/19 05:18 05:31 05:51 Temperature Pulse Rate 83 89 80 Blood Pressure 155/84 197/95 209/98 02/10/19 02/10/19 02/10/19 06:10 06:30 06:51 Temperature Pulse Rate 80 76 83 Blood Pressure 144/83 142/88 199/93 02/10/19 02/10/19 02/10/19 07:11 07:30 07:35 Temperature Pulse Rate 80 78 78 Blood Pressure 204/105 179/82 147/76 02/10/19 02/10/19 07:38 07:42 Temperature 98.0 F Pulse Rate 78 Blood Pressure 147/76 - Exam Breasts: normal Cardiovascular: Regular rate Lungs: Clear to auscultation, Normal air movement Abdomen: Present: normal appearance, soft, normal bowel sounds Uterus: Present: normal FHR: auscultation normal Uterine Contraction Monitor Mode: External Uterine Contraction Pattern: Absent Uterine Tone Measurement Phase: Resting Extremities: normal Deep Tendon Reflex Grade: Normal +2 - Labs Labs: Abnormal Labs 02/07/19 02/07/19 02/07/19 19:50 19:50 19:50 WBC 13.9 H MCV 77 L MCH 26 L MCHC 35 H Sodium 134 L BUN 6 L Creatinine 0.5 L Glucose 124 H POC Glucose Magnesium Lactate Dehydrogenase 282 H Albumin 3.4 L U Epithel Cells (Auto) 23.0 H Ur Total Protein 24 Hr Urine Total Protein 02/07/19 02/08/19 02/08/19 23:30 06:17 06:35 WBC MCV MCH MCHC Sodium BUN Creatinine Glucose POC Glucose 131 H Magnesium 4.30 H Lactate Dehydrogenase Albumin U Epithel Cells (Auto) Ur Total Protein 24 Hr 540.00 H Urine Total Protein 12 H 02/08/19 02/08/19 02/08/19 12:58 13:43 21:16 WBC MCV MCH MCHC Sodium BUN Creatinine Glucose POC Glucose 135 H Magnesium 4.80 H 4.50 H Lactate Dehydrogenase Albumin U Epithel Cells (Auto) Ur Total Protein 24 Hr Urine Total Protein 02/08/19 02/09/19 02/09/19 22:27 03:43 06:06 WBC MCV MCH MCHC Sodium BUN Creatinine Glucose POC Glucose 159 H 163 H Magnesium 5.30 H Lactate Dehydrogenase Albumin U Epithel Cells (Auto) Ur Total Protein 24 Hr Urine Total Protein 02/09/19 02/09/19 02/09/19 08:46 08:46 12:24 WBC 15.7 H MCV 77 L MCH 26 L MCHC Sodium BUN Creatinine 0.5 L Glucose POC Glucose 122 H Magnesium 5.20 H Lactate Dehydrogenase Albumin U Epithel Cells (Auto) Ur Total Protein 24 Hr Urine Total Protein 02/09/19 15:18 WBC MCV MCH MCHC Sodium BUN Creatinine Glucose POC Glucose Magnesium 4.60 H Lactate Dehydrogenase Albumin U Epithel Cells (Auto) Ur Total Protein 24 Hr Urine Total Protein Laboratory Results - last 24 hr 02/09/19 02/09/19 12:24 15:18 POC Glucose 122 H Magnesium 4.60 H
[2019-02-10] MEDS ORDERED: D50W (25GM) Syringe IV PRN (11:33)
--- NOTE | 2019-02-10 12:34 | Ultrasound Report ---
FINDINGS: respiration, tone and motion are well visualized and normal. Amniotic fluid volume is normal. Biophysical profile score is 8/8. Single viable IUP in a cephalic presentation noted. heart rate is 130 bpm. IMPRESSION: The biophysical profile score is 8/8. Signer Name: Ladi Del Rio MD Signed: 02/10/2019 12:30 PM Workstation Name: [id number]
[2019-02-10] MEDS ORDERED: HumaLOG SUB-Q SCH (16:30)
[2019-02-10] MEDS: HumuLIN R SUB-Q SCH ×2 (22:00→23:04)
--- NOTE | 2019-02-11 07:22 | Progress Note ---
Assessment and Plan Pt sleeping Easily roused No c/o voiced. Denies ARRIAZA, blurred vision, chest pain. BP 188/91 last NST Cat 1 [facility] BPP done yesterday 02/28. 1. NST q4hr 2. SS insulin for BS control 3. continue inpt mgt 4. consulted Assesment & Luisito: 1. IUP at 32 2/7 weeks' 2. Essential HTN 3. GDM sliding scale mgt of BS 1. Continue expectant management 2. Increase labetalol to 400 mg q8h if BP's remain > 160 systolic or 105 di astolic 3. Sliding scale insulin to keep Accucheks <100 mg% fasting, < 140 mg% 2 hours postprandial 4. If 10/09/18 24 hour urine protein concentration no > 12 mg%, patient does not likely have superimposed preeclampsia and may be a candidate for outpatient management if BP's improve 5. BPP q 3-4 days - Patient Problems (1) Pre-eclampsia Onset Date: ~02/07/19 Current Visit: Yes Status: Acute Qualifiers: Trimester: third trimester Qualified Code(s): O14.93 - Unspecified pre- eclampsia, third trimester (2) Previous section Onset Date: ~02/07/19 Current Visit: Yes Status: Acute Subjective - Subjective Date of service: 02/11/19 (BPP 02/2802/10/19) Principal diagnosis: IUP@32+2, CHTN, GDM Interval history: EDC Confirmation: 04/06/2019 Gestational Age: 7 5/7 weeks Past History : 3 Term Births: 0 Premature Births: 1 Living Children: 1 Para: 1 Mult. Births: 0 Prev : 1 Prev. attempt? none Aborta: 1 Elect. Ab: 1 Spont. Ab: 0 Ectopics: 0 # 1 Delivery date: 2006 Delivery type: EAB # 2 Delivery date: 11/13/2011 Weeks Gestation: 35 labor: yes Delivery type: Hours of labor: 6 Anesthesia type: Spinal Delivery location: [facility] Infant Sex: female weight: 6.44 Name: Michele Comments: gestational diabetes, pre-eclampsia/eclampsia Risk Factors: Smoked Tobacco Use: Never smoker Smokeless Tobacco Use: Never Passive smoke exposure: no Drug use: no HIV high-risk behavior: low risk Alcohol use: no Seatbelt use: preg-certified addiction counselor % Dietary Counseling: pn yes Past Medical History: Reviewed history from 04/28/2016 and no changes required: Crohn's Disease--just dx 02/2011 Asthma-last inhaler use 2013 GDM used glyburide PIH with last delivery CHTN- HCTZ last taken in June 2018 Past Surgical History: Reviewed history from 11/13/2011 and no changes required: (11/13/2011) Past Medical History Surgery (Non-home health clinician): (11/13/2011) Abnormal PAP: negative GABRIELLA Exposure: negative Infertility: negative Uterine Anomaly: negative Uterine Surgery (not C/S): negative Other Gynecologic Problems: negative Social Hx: Patient is single no etoh, no illicit drug use, no tobacco use Smoking History: Patient has never smoked. Infection History Hx of STD: chlamydia HIV Risk Eval: low risk Hepatitis B Risk Eval: low risk Personal hx. of genital herpes: no Partner hx. of genital herpes: no Rash, Viral, or Febrile illness since last LMP? no Varicella/Chicken Pox Status: Previous Disease Infection History Comments: chlamydia 2018 Genetic History Congenital Heart Defect: Mom: no Dad: no Candido Disease: Mom: no Dad: no Thalassemia Mom: no Dad: no Neural Tube Defect Mom: no Dad: no Down's Syndrome Mom: no Dad: no Alvin-Sachs Mom: no Dad: no Sickle Cell Disease/Trait Dad: no Hemophilia Mom: no Dad: no Muscular Dystrophy Mom: no Dad: no Cystic Fibrosis Mom: no Dad: no Dieudonne Chorea Mom: no Dad: no Mental Retardation Mom: no Dad: no Fragile X Mom: no Dad: no Other Genetic/Chromosomal Disorder Mom: no Dad: no Child w/other defect Mom: no Dad: no Comments/Counseling: + sickle cell trait Enviromental Exposures Enviromental Exposures Reviewed Xray Exposure: no Medication, drug, or alcohol use since LMP: no Chemical/Other Exposure: no Exposure to Cat Liter: no Hx of Parvovirus (Fifth Disease): no Occupational Exposure to Children: none FALSECurrent Allergies (reviewed today): * GLYBURIDE (Critical) * SEAFOOD (Critical) Patient reports: movement normal, no new complaints, no loss of fluid, no vaginal bleeding, no contractions Objective - Vital Signs Vital Signs: Vital Signs - 12hr 02/10/19 02/10/19 02/10/19 19:54 19:56 19:57 Temperature 98.6 F Pulse Rate 84 84 Respiratory 18 Rate Blood Pressure 185/101 185/101 Blood Pressure 185/101 [Left] 02/10/19 02/10/19 02/10/19 20:03 20:59 23:37 Temperature Pulse Rate 90 84 91 H Respiratory Rate Blood Pressure 188/109 161/88 147/88 Blood Pressure [Left] 02/11/19 02/11/19 04:20 04:21 Temperature Pulse Rate 78 78 Respiratory Rate Blood Pressure 182/88 174/89 Blood Pressure [Left] - Exam Breasts: deferred Cardiovascular: Regular rate Lungs: Clear to auscultation Abdomen: Present: normal appearance, soft. Absent: distention, tenderness Uterus: Present: normal FHR: auscultation normal, category 1 (last NST) Uterine Contraction Monitor Mode: External Uterine Contraction Pattern: Absent Extremities: edema Deep Tendon Reflex Grade: Normal but brisk +3 - Labs Labs: Abnormal Labs 02/07/19 02/07/19 02/07/19 19:50 19:50 19:50 WBC 13.9 H MCV 77 L MCH 26 L MCHC 35 H Sodium 134 L BUN 6 L Creatinine 0.5 L Glucose 124 H POC Glucose Magnesium Lactate Dehydrogenase 282 H Albumin 3.4 L U Epithel Cells (Auto) 23.0 H Ur Total Protein 24 Hr Urine Total Protein 02/07/19 02/08/19 02/08/19 23:30 06:17 06:35 WBC MCV MCH MCHC Sodium BUN Creatinine Glucose POC Glucose 131 H Magnesium 4.30 H Lactate Dehydrogenase Albumin U Epithel Cells (Auto) Ur Total Protein 24 Hr 540.00 H Urine Total Protein 12 H 02/08/19 02/08/19 02/08/19 12:58 13:43 21:16 WBC MCV MCH MCHC Sodium BUN Creatinine Glucose POC Glucose 135 H Magnesium 4.80 H 4.50 H Lactate Dehydrogenase Albumin U Epithel Cells (Auto) Ur Total Protein 24 Hr Urine Total Protein 02/08/19 02/09/19 02/09/19 22:27 03:43 06:06 WBC MCV MCH MCHC Sodium BUN Creatinine Glucose POC Glucose 159 H 163 H Magnesium 5.30 H Lactate Dehydrogenase Albumin U Epithel Cells (Auto) Ur Total Protein 24 Hr Urine Total Protein 02/09/19 02/09/19 02/09/19 08:46 08:46 12:24 WBC 15.7 H MCV 77 L MCH 26 L MCHC Sodium BUN Creatinine 0.5 L Glucose POC Glucose 122 H Magnesium 5.20 H Lactate Dehydrogenase Albumin U Epithel Cells (Auto) Ur Total Protein 24 Hr Urine Total Protein 02/09/19 02/09/19 02/10/19 15:18 17:06 14:20 WBC MCV MCH MCHC Sodium BUN Creatinine Glucose POC Glucose 114 H 120 H Magnesium 4.60 H Lactate Dehydrogenase Albumin U Epithel Cells (Auto) Ur Total Protein 24 Hr Urine Total Protein Laboratory Results - last 24 hr 02/09/19 02/09/19 02/10/19 17:06 22:40 06:28 POC Glucose 114 H 92 105 02/10/19 02/10/19 02/10/19 07:41 14:20 22:47 POC Glucose 102 120 H 78
[2019-02-11] MEDS: NORMODYNE PO SCH ×3 (08:20→21:21)
[2019-02-11] MEDS: GLUCOPHAGE PO SCH ×2 (09:00→18:26)
[2019-02-11] MEDS: PRENATAL VITAMIN PO SCH (09:00)
--- NOTE | 2019-02-11 17:41 | Event Note ---
Date: 02/11/19 (pt resting No c/o voiced) Pt states she is resolved to stay in house until her BP is better controlled. BPs 182/106; 158/91. Pt denies ARRIAZA, blurred vision, chest pain. Reports good FM, no LOF. All questions addressed. given report. ALEXANDRA Dover did report BP to No new orders.
--- NOTE | 2019-02-11 17:50 | Progress Note ---
Assessment and Plan 1. IUP at 32 2/7 weeks' 2. Essential HTN 3. GDM 1. Continue expectant management 2. Increase labetalol to 600 mg q8h if BP's remain > 160 systolic or 105 diastolic 3. Sliding scale insulin to keep Accucheks <100 mg% fasting, < 140 mg% 2 hours postprandial 4. BPP q 3-4 days Subjective - Subjective Date of service: 02/11/19 Principal diagnosis: IUP@32+2, CHTN, GDM Interval history: Feeling well, fetus active; patient admits to anxiety and its likely effect on BP Patient reports: movement normal, no new complaints, no loss of fluid, no vaginal bleeding, no contractions Objective - Vital Signs Vital Signs: Vital Signs - 12hr 02/11/19 02/11/19 02/11/19 07:38 07:43 08:25 Temperature Pulse Rate 88 91 H 88 Respiratory Rate Blood Pressure 188/91 230/111 180/119 02/11/19 02/11/19 02/11/19 08:27 08:30 09:01 Temperature 98.3 F Pulse Rate 85 86 Respiratory Rate Blood Pressure 170/104 192/111 02/11/19 02/11/19 02/11/19 09:02 10:15 11:00 Temperature Pulse Rate 84 83 87 Respiratory Rate Blood Pressure 177/97 189/99 192/105 02/11/19 02/11/19 02/11/19 11:01 12:08 12:09 Temperature Pulse Rate 87 86 85 Respiratory Rate Blood Pressure 175/97 180/110 174/111 02/11/19 02/11/19 02/11/19 12:11 12:37 14:16 Temperature Pulse Rate 82 83 88 Respiratory Rate Blood Pressure 179/93 186/100 171/92 02/11/19 02/11/19 02/11/19 14:17 15:03 16:37 Temperature Pulse Rate 88 87 86 Respiratory Rate Blood Pressure 171/92 140/81 196/118 02/11/19 02/11/19 02/11/19 17:08 17:10 17:18 Temperature 99.1 F Pulse Rate 85 85 Respiratory 20 Rate Blood Pressure 182/106 159/81 - Exam Narrative Exam: Abd soft, nontender; FHT's reassuring earlier today; DTR 1-2+; labs and Accucheks reviewed: 24 hour urine total protein higher than in 10/09, but repeat protein concentration was actually lower than the previous value - Labs Labs: Abnormal Labs 02/07/19 02/07/19 02/07/19 19:50 19:50 19:50 WBC 13.9 H MCV 77 L MCH 26 L MCHC 35 H Sodium 134 L BUN 6 L Creatinine 0.5 L Glucose 124 H POC Glucose Magnesium Lactate Dehydrogenase 282 H Albumin 3.4 L U Epithel Cells (Auto) 23.0 H Ur Total Protein 24 Hr Urine Total Protein 02/07/19 02/08/19 02/08/19 23:30 06:17 06:35 WBC MCV MCH MCHC Sodium BUN Creatinine Glucose POC Glucose 131 H Magnesium 4.30 H Lactate Dehydrogenase Albumin U Epithel Cells (Auto) Ur Total Protein 24 Hr 540.00 H Urine Total Protein 12 H 02/08/19 02/08/19 02/08/19 12:58 13:43 21:16 WBC MCV MCH MCHC Sodium BUN Creatinine Glucose POC Glucose 135 H Magnesium 4.80 H 4.50 H Lactate Dehydrogenase Albumin U Epithel Cells (Auto) Ur Total Protein 24 Hr Urine Total Protein 02/08/19 02/09/19 02/09/19 22:27 03:43 06:06 WBC MCV MCH MCHC Sodium BUN Creatinine Glucose POC Glucose 159 H 163 H Magnesium 5.30 H Lactate Dehydrogenase Albumin U Epithel Cells (Auto) Ur Total Protein 24 Hr Urine Total Protein 02/09/19 02/09/19 02/09/19 08:46 08:46 12:24 WBC 15.7 H MCV 77 L MCH 26 L MCHC Sodium BUN Creatinine 0.5 L Glucose POC Glucose 122 H Magnesium 5.20 H Lactate Dehydrogenase Albumin U Epithel Cells (Auto) Ur Total Protein 24 Hr Urine Total Protein 02/09/19 02/09/19 02/10/19 15:18 17:06 14:20 WBC MCV MCH MCHC Sodium BUN Creatinine Glucose POC Glucose 114 H 120 H Magnesium 4.60 H Lactate Dehydrogenase Albumin U Epithel Cells (Auto) Ur Total Protein 24 Hr Urine Total Protein Laboratory Results - last 24 hr 02/09/19 02/09/19 02/10/19 17:06 22:40 06:28 POC Glucose 114 H 92 105 02/10/19 02/10/19 02/10/19 07:41 14:20 22:47 POC Glucose 102 120 H 78
[2019-02-11] MEDS ORDERED: APRESOLINE IV ONE ×2 (18:07→18:21)
[2019-02-11] MEDS: AMBIEN PO PRN (23:15)
--- NOTE | 2019-02-12 07:08 | Progress Note ---
Assessment and Plan pt resting, no complaints. b/p's improved over yesterday with increased dose of labetalol; last 12 hrs they range from 117/74-184/92. again, nurse reports several of elevated pressures were taken with patient laying on cuff. RN instructed to take b/p q4hrs manually - do not leave cuff on patient. Pt denies ARRIAZA, visual changes or epigastic pain. blood sugars NL. Will consult Dr. Chadwick. 1. IUP at 32 3/7 weeks' 2. Essential HTN 3. GDM Recommendations per [facility]: 1. Continue expectant management 2. Increase labetalol to 800 mg q8h if BP's remain > 160 systolic or 105 diastolic 3. Sliding scale insulin to keep Accucheks <100 mg% fasting, < 140 mg% 2 hours postprandial 4. BPP q 3-4 days (last done 02/10/19, ordered for tomorrow) - Patient Problems (1) 32 weeks gestation of Current Visit: Yes Status: Acute (2) HTN (hypertension) Current Visit: Yes Status: Acute Qualifiers: Hypertension type: essential hypertension Qualified Code(s): I10 - Essential (primary) hypertension Plan to address problem: now on Labetalol 600mg PO TID denies ARRIAZA, visual changes or epigastric pain (3) Gestational diabetes mellitus (GDM) during controlled on oral hypoglycemic therapy Onset Date: ~02/11/19 Current Visit: Yes Status: Acute Plan to address problem: Continue accuchecks and Metformin 500mg PO BID SS insulin ordered if needed Subjective - Subjective Date of service: 02/12/19 Principal diagnosis: IUP@32+3, CHTN, GDM Patient reports: movement normal, no new complaints, no loss of fluid, no vaginal bleeding, no contractions, no other (denies ARRIAZA, visual changes or epigastric pain) Objective - Vital Signs Vital Signs: Vital Signs - 12hr 02/11/19 02/11/19 02/11/19 19:15 19:36 19:57 Temperature Pulse Rate 93 H 97 H 96 H Respiratory Rate Blood Pressure 184/92 169/64 186/86 02/11/19 02/11/19 02/11/19 20:00 20:16 20:35 Temperature 99.1 F Pulse Rate 93 H 89 Respiratory 18 Rate Blood Pressure 141/70 141/67 02/11/19 02/11/19 02/11/19 20:55 21:01 21:15 Temperature Pulse Rate 90 92 H 96 H Respiratory Rate Blood Pressure 182/95 175/91 137/64 02/11/19 02/11/19 02/11/19 21:21 21:35 23:21 Temperature Pulse Rate 96 H 98 H 86 Respiratory Rate Blood Pressure 137/64 169/96 130/84 02/11/19 02/11/19 02/12/19 23:35 23:56 00:15 Temperature Pulse Rate 90 86 85 Respiratory Rate Blood Pressure 132/75 117/74 125/93 02/12/19 02/12/19 00:36 02:36 Temperature Pulse Rate 83 60 Respiratory Rate Blood Pressure 119/85 167/79 - Exam Breasts: normal Cardiovascular: Regular rate, Normal S1 Lungs: Clear to auscultation, Normal air movement Abdomen: Present: normal appearance, soft Uterus: Present: normal FHR: auscultation normal Uterine Contraction Monitor Mode: External Extremities: normal Deep Tendon Reflex Grade: Normal +2 - Labs Labs: Abnormal Labs 02/07/19 02/07/19 02/07/19 19:50 19:50 19:50 WBC 13.9 H MCV 77 L MCH 26 L MCHC 35 H Sodium 134 L BUN 6 L Creatinine 0.5 L Glucose 124 H POC Glucose Magnesium Lactate Dehydrogenase 282 H Albumin 3.4 L U Epithel Cells (Auto) 23.0 H Ur Total Protein 24 Hr Urine Total Protein 02/07/19 02/08/19 02/08/19 23:30 06:17 06:35 WBC MCV MCH MCHC Sodium BUN Creatinine Glucose POC Glucose 131 H Magnesium 4.30 H Lactate Dehydrogenase Albumin U Epithel Cells (Auto) Ur Total Protein 24 Hr 540.00 H Urine Total Protein 12 H 02/08/19 02/08/19 02/08/19 12:58 13:43 21:16 WBC MCV MCH MCHC Sodium BUN Creatinine Glucose POC Glucose 135 H Magnesium 4.80 H 4.50 H Lactate Dehydrogenase Albumin U Epithel Cells (Auto) Ur Total Protein 24 Hr Urine Total Protein 02/08/19 02/09/19 02/09/19 22:27 03:43 06:06 WBC MCV MCH MCHC Sodium BUN Creatinine Glucose POC Glucose 159 H 163 H Magnesium 5.30 H Lactate Dehydrogenase Albumin U Epithel Cells (Auto) Ur Total Protein 24 Hr Urine Total Protein 02/09/19 02/09/19 02/09/19 08:46 08:46 12:24 WBC 15.7 H MCV 77 L MCH 26 L MCHC Sodium BUN Creatinine 0.5 L Glucose POC Glucose 122 H Magnesium 5.20 H Lactate Dehydrogenase Albumin U Epithel Cells (Auto) Ur Total Protein 24 Hr Urine Total Protein 02/09/19 02/09/19 02/10/19 15:18 17:06 14:20 WBC MCV MCH MCHC Sodium BUN Creatinine Glucose POC Glucose 114 H 120 H Magnesium 4.60 H Lactate Dehydrogenase Albumin U Epithel Cells (Auto) Ur Total Protein 24 Hr Urine Total Protein 02/11/19 21:00 WBC MCV MCH MCHC Sodium BUN Creatinine Glucose POC Glucose 66 L Magnesium Lactate Dehydrogenase Albumin U Epithel Cells (Auto) Ur Total Protein 24 Hr Urine Total Protein Laboratory Results - last 24 hr 02/11/19 21:00 POC Glucose 66 L
[2019-02-12] MEDS: GLUCOPHAGE PO SCH ×2 (10:00→10:46)
[2019-02-12] MEDS: NORMODYNE PO SCH ×2 (10:29→14:44)
--- NOTE | 2019-02-12 11:17 | Event Note ---
Date: 02/12/19 Agree with MW exam and note. Will monitor on higher dosage of labetalol. First dose given this am. Will plan for d/c home when BP are better controlled. Still labile at this time and pt had iv hydralazine times 2 on yesterday due to severe range bps.
[2019-02-12 14:47] VITALS: BP 146/80
--- NOTE | 2019-02-12 15:09 | Discharge Summary ---
Providers - Providers Date of Admission: 02/07/19 21:12 Date of discharge: 02/12/19 (discharge home) Attending physician: HOLLIS DAVENPORT 02/07/19 19:22 Consult to Physician [CONS] Routine Comment: Consulting Provider: VALERIE WALTON Physician Instructions: Reason For Exam: continuity of care Primary care physician: HOLLIS DAVENPORT Hospitalization Reason for admission: other (Antepartum) Procedure: other (blood pressure management) Discharge diagnosis: other (IUP @ 32 weeks, HTN, GDM) Hospital course: antepartum admission for b/p management Condition at discharge: Good Disposition: DC-01 TO HOME OR SELFCARE - Discharge Diagnoses (1) 32 weeks gestation of Status: Acute (2) HTN (hypertension) Status: Acute Qualifiers: Hypertension type: essential hypertension Qualified Code(s): I10 - Essential (primary) hypertension Comment: Plan of care made in collaboration with Dr. lu discharge rx sent to pharmacy Appointment scheduled next monday @ 9:30AM Discussed d/c instructions with patient - she is to check her b/p 4 times a day and call if >165/105 She is to call for any c/o headache/visual changes or epigastric pain (3) Gestational diabetes mellitus (GDM) during controlled on oral hypoglycemic therapy Status: Acute Plan - Discharge Medications Prescriptions: Labetalol HCl [Labetalol 300mg TAB] 600 mg PO TID #90 tablet - Provider Discharge Summary Activity: other (House rest) Diet: other (Diabetic/low salt) Additional instructions: [] Smoking cessation referral if applicable(refer to patient education folder for contact #) [] Refer to [facility] Booklet Call your doctor immediately for: * Fever > 100.5 * Heavy vaginal bleeding ( >1 pad per hour) * Severe persistent headache * Shortness of breath * Reddened, hot, painful area to leg or breast * Drainage or odor from incision. * Keep incision clean and dry at all times and follow doctor's instructions regarding bathing/showering - Follow up plan Follow up: HOLLIS DAVENPORT MD [Primary Care Provider] - 02/18/19 9:30 am (labetalol prescription sent to [facility] pharmacy in [place] Appointment scheduled next monday @ 9:30AM check her b/p 4 times a day and call if >165/105. Call for any headache/visual changes or upper abdominal pain.)
== END 2019-02-12 16:30 | disposition home or self-care (01) | DRG 831 ==
LOC: TRG 18:25 → APU 21:12
PROVIDERS: ADMIT Obstetrics & Gynecology; ATTEND Obstetrics & Gynecology
DX: O24.415 Gestational diabetes mellitus in pregnancy, controlled by oral hypoglycemic drugs (principal); O11.3 Pre-existing hypertension with pre-eclampsia, third trimester; K50.90 Crohn's disease, unspecified, without complications; O99.820 Streptococcus B carrier state complicating pregnancy; O34.211 Maternal care for low transverse scar from previous cesarean delivery; O99.613 Diseases of the digestive system complicating pregnancy, third trimester; Z91.013 Allergy to seafood; Z79.899 Other long term (current) drug therapy; Z3A.31 31 weeks gestation of pregnancy
CPT/HCPCS: 36415; 76819; 80053; 81001; 82565; 82962; 83615; 83735; 84156; 84450; 84460; 84550; 85027; 86850; 86900; 86901; J0360; J0702; J2765; J3475; J7120

== ENCOUNTER 2019-03-07 17:15 | Inpatient (IN) | payer OTHER, MEDICAID ==
[2019-03-07] MEDS ORDERED: APRESOLINE IV ONE (18:07)
[2019-03-07] MEDS: APRESOLINE IV PRN (18:50)
--- NOTE | 2019-03-07 19:43 | History and Physical Report ---
<ALISTAIR SMITH - Last Filed: 03/07/19 19:57> History of Present Illness Date of examination: 03/07/19 Date of admission: 03/07/2019 Chief complaint: pt sent from [facility] office appt d/t elevated BPs for 24 hr urine collection, BP monitoring, PIH labs History of present illness: Menstrual History Regularity: regular Menses every: 28 days Duration: 6 LMP: 06/30/2018 LMP reliability: definite LMP character: normal test type: urine test Date: 08/23/2018 BC at conception: none Planned ? yes EDC Calculations LMP: 04/06/2019 EDC Confirmation: 04/06/2019 Gestational Age: 7 5/7 weeks Past History : 3 Term Births: 0 Premature Births: 1 Living Children: 1 Para: 1 Mult. Births: 0 Prev : 1 Prev. attempt? none Aborta: 1 Elect. Ab: 1 Spont. Ab: 0 Ectopics: 0 # 1 Delivery date: 2006 Delivery type: EAB # 2 Delivery date: 11/13/2011 Weeks Gestation: 35 labor: yes Delivery type: Hours of labor: 6 Anesthesia type: Spinal Delivery location: [facility] Infant Sex: female weight: 6.44 Name: Michele Comments: gestational diabetes, pre-eclampsia/eclampsia Risk Factors: Smoked Tobacco Use: Never smoker Smokeless Tobacco Use: Never Passive smoke exposure: no Drug use: no HIV high-risk behavior: low risk Alcohol use: no Seatbelt use: preg-benefits counselor % Dietary Counseling: pn yes Past Medical History: Reviewed history from 04/28/2016 and no changes required: Crohn's Disease--just dx 02/2011 Asthma-last inhaler use 2013 GDM used glyburide PIH with last delivery CHTN- HCTZ last taken in June 2018 Past Surgical History: Reviewed history from 11/13/2011 and no changes required: (11/13/2011) Past Medical History 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 Infection History Hx of STD: chlamydia HIV Risk Eval: low risk Hepatitis B Risk Eval: low risk Personal hx. of genital herpes: no Partner hx. of genital herpes: no Rash, Viral, or Febrile illness since last LMP? no Varicella/Chicken Pox Status: Previous Disease Infection History Comments: chlamydia 2018 Genetic History Congenital Heart Defect: Mom: no Dad: no Candido Disease: Mom: no Dad: no Thalassemia Mom: no Dad: no Neural Tube Defect Mom: no Dad: no Down's Syndrome Mom: no Dad: no Alvin-Sachs Mom: no Dad: no Sickle Cell Disease/Trait Dad: no Hemophilia Mom: no Dad: no Muscular Dystrophy Mom: no Dad: no Cystic Fibrosis Mom: no Dad: no [place] Chorea Mom: no Dad: no Mental Retardation Mom: no Dad: no Fragile X Mom: no Dad: no Other Genetic/Chromosomal Disorder Mom: no Dad: no Child w/other defect Mom: no Dad: no Comments/Counseling: + sickle cell trait Enviromental Exposures Enviromental Exposures Reviewed Xray Exposure: no Medication, drug, or alcohol use since LMP: no Chemical/Other Exposure: no Exposure to Cat Liter: no Hx of Parvovirus (Fifth Disease): no Occupational Exposure to Children: none FALSECurrent Allergies (reviewed today): * GLYBURIDE (Critical) * SEAFOOD (Critical) Past History Past Medical History: other (see H&P) Past Surgical History: other (see H&P) CREDIT REPORTER History: other (see H&P) Family/Genetic History: other (see H&P) Social history: other (see H&P) - Obstetrical History Expected Date of Delivery: 04/06/19 Actual Gestation: 35 Week(s) 5 Day(s) : 3 Para: 1 Hx # Term Pregnancies: 0 Number of Pregnancies: 1 Spontaneous Abortions: 0 Induced : 1 Number of Living Children: 1 Medications and Allergies Allergies Allergy/AdvReac Type Severity Reaction Status Date / Time glyburide Allergy Rash Verified 02/07/19 20:17 shellfish derived AdvReac Severe Anaphylaxis Verified 01/04/19 15:28 Home Medications Medication Instructions Recorded Confirmed Last Taken Type Labetalol [Labetalol 200mg TAB] 200 mg PO BID 01/16/19 01/16/19 01/16/19 10:00 History Labetalol HCl [Labetalol 300mg TAB] 600 mg PO TID #90 tablet 02/12/19 Unknown Rx Active Meds: Active Medications Acetaminophen (Tylenol) 650 mg PO Q4H PRN PRN Reason: Pain MILD(1-3)/Fever >100.5/ARRIAZA Docusate Sodium (Colace) 100 mg PO Q12H PRN PRN Reason: Constipation Hydralazine HCl (Apresoline) 10 mg IV ONCE PRN PRN Reason: hypertension Last Admin: 03/07/19 18:50 Dose: 10 mg Documented by: Labetalol HCl (Normodyne) 300 mg PO TID JOVANI Metformin HCl (Glucophage) 500 mg PO BIDDIAB [facility] Multivitamins/Iron/Calcium ( Vitamin) 1 each PO QDAY [facility] Review of Systems All systems: negative Genitourinary: no vaginal bleeding, no leakage of fluid, no contractions - Vital Signs Vital signs: Vital Signs Pulse BP 91 H 190/96 03/07/19 18:04 03/07/19 18:04 Temp Pulse Resp BP Pulse Ox 90 145/97 100 03/07/19 19:37 03/07/19 19:37 03/07/19 19:36 - Physical Exam Breasts: Positive: normal Cardiovascular: Regular rate, Normal S1, Normal S2 Lungs: Positive: Clear to auscultation, Normal air movement Abdomen: Positive: normal appearance, soft, normal bowel sounds. Negative: distention, tenderness Genitourinary (Female): Positive: normal external genitalia, normal perenium Vulva: both: normal Vagina: Positive: normal moisture. Negative: discharge Cervix: Negative: lesion, discharge Uterus: Positive: normal size, normal contour Adnexa: both: normal Extremities: Positive: normal Deep Tendon Reflex Grade: Normal +2 - Obstetrical FHR: auscultation normal Uterine Contraction Monitor Mode: External Uterine Contraction Pattern: Absent Results Result Diagrams: 03/07/19 19:14 Abnormal lab results 03/07/19 Range/Units 19:18 POC Glucose 111 H (70-105) All other labs normal. Assessment and Plan 29 y.o. at 35w5d presents for direct apu admission from [facility] d/t elevated bps in office for 24hr urine collection, PIH labs, BP monitoring. Patient reports feeling well, she denies any complaints or concerns. She denies any ARRIAZA, visual disturbances, RUQ/epigastric pain, chest pain, SOB, difficulty breathing, contractions, LOF, vaginal bleeding. +FM. DTRs 2+. PIH labs drawn and sent to lab, will monitor for results. 24 hr urine collection started at 1700. Elevated BP noted prior to assessment and pt was given 1 dose of IV hydralazine, BP 140s/90s on recheck while at bedside. FHT baseline 130 with moderate variability, +accelerations, occasional variable deceleration noted. No contractions noted on TOCO or palpation. Abdomen palpates soft, patient reports non tender. Dr. Bautista spoke with Dr. Solorio with [facility]. Order for consult on chart. BMZ series to be given, first dose ordered for now. No order for dopplers at this time per Dr. Solorio. Will continue to monitor BPs and FHTs. RN aware to call with any BP >160/105. - Patient Problems (1) 35 weeks gestation of Current Visit: Yes Status: Acute Plan to address problem: BMZ series ordered. First dose to be given now. (2) Chronic hypertension with exacerbation during in third trimester Current Visit: Yes Status: Acute Plan to address problem: PIH labs pending 24 hr urine initiated on 03/07/2019 at 1700 Serial BPs Labetalol 300mp PO TID. Pt reports last dose prior to admission at 1400 today. First dose scheduled for 1999 RN to call with any BP >160/105 (3) Gestational diabetes mellitus (GDM) during controlled on oral hypoglycemic therapy Onset Date: ~02/11/19 Current Visit: Yes Status: Acute Plan to address problem: Metformin 500mg BID- 1 tablet with breakfast, 1 tablet with dinner FSBS fasting, 2hr PP, and HS (4) History of Crohn's disease Current Visit: Yes Status: Acute (5) Previous section Onset Date: ~02/07/19 Current Visit: Yes Status: Acute (6) Sickle cell trait Current Visit: Yes Status: Acute (7) IUGR (intrauterine growth restriction) Current Visit: Yes Status: Acute Plan to address problem: 6% per verbal report from Dr. Fraire at [facility] today Will obtain records and follow recommendations of [facility] <CLARITZA BAUTISTA - Last Filed: 03/07/19 20:44> Medications and Allergies Active Meds: Active Medications Acetaminophen (Tylenol) 650 mg PO Q4H PRN PRN Reason: Pain MILD(1-3)/Fever >100.5/ARRIAZA Betamethasone Acet/Betameth SodPhos (Celestone Soluspan) 12 mg IM Q24H JOVANI Stop: 03/08/19 21:01 Docusate Sodium (Colace) 100 mg PO Q12H PRN PRN Reason: Constipation Hydralazine HCl (Apresoline) 10 mg IV ONCE PRN PRN Reason: hypertension Last Admin: 03/07/19 18:50 Dose: 10 mg Documented by: Labetalol HCl (Normodyne) 300 mg PO TID JOVANI Metformin HCl (Glucophage) 500 mg PO BIDDIAB [facility] Multivitamins/Iron/Calcium ( Vitamin) 1 each PO QDAY [facility] - Vital Signs Vital signs: Vital Signs Pulse BP 91 H 190/96 03/07/19 18:04 03/07/19 18:04 Temp Pulse Resp BP Pulse Ox 101 H 141/80 100 03/07/19 20:26 03/07/19 20:18 03/07/19 20:26 Results Result Diagrams: 03/07/19 19:14 03/07/19 19:14 Abnormal lab results 03/07/19 03/07/19 Range/Units 19:14 19:18 WBC 12.8 H (4.5-11.0) K/mm3 MCV 78 L (79-97) fl MCH 27 L (28-32) pg Curry % (Auto) 8.2 H (0.0-7.3) % Curry # 1.1 H (0.0-0.8) K/mm3 POC Glucose 111 H (70-105) All other labs normal. Assessment and Plan - Patient Problems (1) 35 weeks gestation of Current Visit: Yes Status: Acute (2) Chronic hypertension with exacerbation during in third trimester Current Visit: Yes Status: Acute Plan to address problem: stable BP's. Last 24hour TP performed [id number]. AMFM to see her tomorrow (3) Gestational diabetes mellitus (GDM) during controlled on oral hypoglycemic therapy Onset Date: ~02/11/19 Current Visit: Yes Status: Acute (4) History of Crohn's disease Current Visit: Yes Status: Acute (5) IUGR (intrauterine growth restriction) Current Visit: Yes Status: Acute (6) Previous section Onset Date: ~02/07/19 Current Visit: Yes Status: Acute Plan to address problem: Desires repeat c/s (7) Sickle cell trait Current Visit: Yes Status: Acute (8) Sterilization Current Visit: Yes Status: Acute
[2019-03-07 19:45] LABS: Basophils # (Auto) 0.1 K/mm3 (0.0-0.1); Basophils % (Auto) 0.9 % (0.0-1.8); Eosinophils # (Auto) 0.2 K/mm3 (0.0-0.4); Eosinophils % (Auto) 1.3 % (0.0-4.3); Hematocrit 37.4 % (30.3-42.9); Hemoglobin 12.9 gm/dl (10.1-14.3); Lymphocytes % (Auto) 31.3 % (13.4-35.0); Mean Corpuscular HGB Conc 34 % (30-34); Mean Corpuscular Volume 78 fl (79-97); Monocytes # (Auto) 1.1 K/mm3 (0.0-0.8); Monocytes % (Auto) 8.2 % (0.0-7.3); Platelet Count 264 K/mm3 (140-440); Red Blood Count 4.81 M/mm3 (3.65-5.03); Red Cell Distribution Width 14.8 % (13.2-15.2)
[2019-03-07] MEDS ORDERED: NORMODYNE PO SCH (20:00)
[2019-03-07 20:05] LABS: Alanine Aminotransferase 14 units/L (7-56); Uric Acid 6.2 mg/dL (3.5-7.6)
[2019-03-07] MEDS: GLUCOPHAGE PO SCH (21:17)
[2019-03-07] MEDS: CELESTONE SOLUSPAN IM SCH (21:18)
--- NOTE | 2019-03-08 07:11 | Consultation ---
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) Family/Genetic History: other (see H&P) - Obstetrical History : 3 Medications and Allergies Allergies Allergy/AdvReac Type Severity Reaction Status Date / Time glyburide Allergy Rash Verified 02/07/19 20:17 shellfish derived AdvReac Severe Anaphylaxis Verified 01/04/19 15:28 Home Medications Medication Instructions Recorded Confirmed Last Taken Type Labetalol [Labetalol 200mg TAB] 200 mg PO BID 01/16/19 01/16/19 01/16/19 10:00 History Labetalol HCl [Labetalol 300mg TAB] 600 mg PO TID #90 tablet 02/12/19 Unknown Rx Active Meds: Active Medications Acetaminophen (Tylenol) 650 mg PO Q4H PRN PRN Reason: Pain MILD(1-3)/Fever >100.5/ARRIAZA Betamethasone Acet/Betameth SodPhos (Celestone Soluspan) 12 mg IM Q24H [facility] Stop: 03/08/19 21:01 Last Admin: 03/07/19 21:18 Dose: 12 mg Documented by: Docusate Sodium (Colace) 100 mg PO Q12H PRN PRN Reason: Constipation Hydralazine HCl (Apresoline) 10 mg IV ONCE PRN PRN Reason: hypertension Last Admin: 03/07/19 18:50 Dose: 10 mg Documented by: Labetalol HCl (Normodyne) 400 mg PO TID [facility] Metformin HCl (Glucophage) 500 mg PO BIDDIAB [facility] Last Admin: 03/07/19 21:17 Dose: 500 mg Documented by: Multivitamins/Iron/Calcium ( Vitamin) 1 each PO QDAY [facility] - Vital Signs Vital signs: Vital Signs Pulse BP 91 H 190/96 03/07/19 18:04 03/07/19 18:04 Temp Pulse Resp BP Pulse Ox 93 H 186/100 99 03/08/19 07:01 03/08/19 07:01 03/07/19 23:11 Results Result Diagrams: 03/07/19 19:14 03/07/19 19:14 Abnormal lab results 03/07/19 03/07/19 03/08/19 Range/Units 19:14 19:18 06:32 WBC 12.8 H (4.5-11.0) K/mm3 MCV 78 L (79-97) fl MCH 27 L (28-32) pg [place] % (Auto) 8.2 H (0.0-7.3) % Slope # 1.1 H (0.0-0.8) K/mm3 POC Glucose 111 H 126 H (70-105) All other labs normal. Assessment and Plan [facility] Pt seen Full consult to follow Labetalol increased to 400mg TID Pt to receive a dose of IV Hydralazine now
[2019-03-08] MEDS ORDERED: NORMODYNE PO ONE (07:12)
[2019-03-08] MEDS ORDERED: MAGNESIUM SULFATE 4GM/100ML 4 GM/100 ML BAG IV ONE ×2 (07:13→08:00)
[2019-03-08] MEDS: APRESOLINE IV PRN (07:14)
[2019-03-08] MEDS: NORMODYNE PO SCH ×3 (07:21→20:58)
[2019-03-08] MEDS ORDERED: LACTATED RINGERS 1,000 ML ONE (07:27)
--- NOTE | 2019-03-08 07:40 | Progress Note ---
Assessment and Plan Pt resting, voices concern over size of . Discussed progression of poorly controlled b/p and risk of growth restriction. Pt reports active FM, denies cramping or bleeding. denies s/s pre-e. Understands need for mag sulfate and close monitoring. [facility]'s Dr. Solorio saw patient this morning. Will consult Dr. Chadwick on plan of care. - Patient Problems (1) 35 weeks gestation of Current Visit: Yes Status: Acute Plan to address problem: steroids for lung maturity in progress, second dose due @ 2100 tonight (2) Chronic hypertension with exacerbation during in third trimester Current Visit: Yes Status: Acute Plan to address problem: repeat 24 hr urine initiated on 03/07/[address] Solorio increased labetalol dose; Labetalol 400mp PO TID. Magnesium sulfate started for neuro protection Last 24hour TP performed 02/07/20192206=331ft/24h. (3) Gestational diabetes mellitus (GDM) during controlled on oral hypoglycemic therapy Onset Date: ~02/11/19 Current Visit: Yes Status: Acute Plan to address problem: Metformin 500mg BID- 1 tablet with breakfast, 1 tablet with dinner FSBS fasting, 2hr PP, and HS (4) IUGR (intrauterine growth restriction) Current Visit: Yes Status: Acute Plan to address problem: Cont EFM/[place] 6% per verbal report from Dr. Fraire at [facility] 03/07/19 (5) Previous section Onset Date: ~02/07/19 Current Visit: Yes Status: Acute Plan to address problem: desires repeat c/s Subjective - Subjective Date of service: 03/08/19 (Civil Laboratory Technician note) Principal diagnosis: IUP @ 35+6 , HTN Patient reports: movement normal, no new complaints, no other (denies ARRIAZA, visual changes or epigastric pain) Objective - Vital Signs Vital Signs: Vital Signs - 12hr 03/07/19 03/07/19 03/07/19 19:41 19:46 19:47 Pulse Rate 92 H 94 H 89 Blood Pressure 157/100 O2 Sat by Pulse 100 100 Oximetry 03/07/19 03/07/19 03/07/19 19:51 19:56 20:01 Pulse Rate 91 H 93 H 96 H Blood Pressure O2 Sat by Pulse 100 99 99 Oximetry 0803/07/19 03/07/19 20:02 20:06 20:11 Pulse Rate 89 94 H 87 Blood Pressure 152/84 O2 Sat by Pulse 100 99 Oximetry 03/07/19 03/07/19 03/07/19 20:16 20:18 20:21 Pulse Rate 89 94 H 95 H Blood Pressure 141/80 O2 Sat by Pulse 99 100 Oximetry 03/07/19 03/07/19 03/07/19 20:26 20:31 20:32 Pulse Rate 101 H 94 H 93 H Blood Pressure 147/78 O2 Sat by Pulse 100 100 Oximetry 03/07/19 03/07/19 03/07/19 20:36 20:41 20:46 Pulse Rate 97 H 96 H 107 H Blood Pressure O2 Sat by Pulse 100 100 100 Oximetry 03/07/19 03/07/19 03/07/19 21:14 21:15 21:16 Pulse Rate 90 92 H 91 H Blood Pressure 133/82 133/82 O2 Sat by Pulse 100 Oximetry 03/07/19 03/07/19 03/07/19 21:20 21:25 21:30 Pulse Rate 93 H 91 H 87 Blood Pressure O2 Sat by Pulse 100 99 99 Oximetry 03/07/19 03/07/19 03/07/19 21:33 21:35 21:40 Pulse Rate 91 H 86 86 Blood Pressure 154/82 O2 Sat by Pulse 99 99 Oximetry 03/07/19 03/07/19 03/07/19 21:45 21:47 21:50 Pulse Rate 91 H 90 92 H Blood Pressure 138/83 O2 Sat by Pulse 99 99 Oximetry 03/07/19 03/07/19 03/07/19 21:55 22:00 22:05 Pulse Rate 92 H 94 H 93 H Blood Pressure O2 Sat by Pulse 100 100 100 Oximetry 03/07/19 03/07/19 03/07/19 22:10 22:19 22:21 Pulse Rate 115 H 77 48 L Blood Pressure O2 Sat by Pulse 64 L 0 L 94 Oximetry 03/07/19 03/07/19 03/07/19 22:26 22:31 22:36 Pulse Rate 91 H 87 86 Blood Pressure O2 Sat by Pulse 98 100 100 Oximetry 03/07/19 03/07/19 03/07/19 22:41 22:46 22:51 Pulse Rate 83 88 90 Blood Pressure O2 Sat by Pulse 100 100 100 Oximetry 03/07/19 03/07/19 03/07/19 22:56 23:01 23:06 Pulse Rate 86 90 81 Blood Pressure O2 Sat by Pulse 100 100 99 Oximetry 03/07/19 03/07/19 03/08/19 23:11 23:33 00:34 Pulse Rate 87 85 90 Blood Pressure 142/87 184/102 O2 Sat by Pulse 99 Oximetry 03/08/19 03/08/19 03/08/19 01:33 02:33 04:58 Pulse Rate 90 93 H 89 Blood Pressure 134/85 147/85 160/91 O2 Sat by Pulse Oximetry 03/08/19 03/08/19 03/08/19 05:34 05:37 06:32 Pulse Rate 93 H 85 91 H Blood Pressure 163/97 162/84 189/126 O2 Sat by Pulse Oximetry 03/08/19 03/08/19 03/08/19 06:36 07:01 07:14 Pulse Rate 88 93 H 93 H Blood Pressure 160/100 186/100 186/100 O2 Sat by Pulse Oximetry 03/08/19 07:25 Pulse Rate 100 H Blood Pressure 188/118 O2 Sat by Pulse Oximetry - Exam Breasts: normal Cardiovascular: Regular rate Lungs: Clear to auscultation, Normal air movement Abdomen: Present: normal appearance, soft Uterus: Present: normal FHR: category 1 Uterine Contraction Monitor Mode: External Uterine Contraction Pattern: Absent Uterine Tone Measurement Phase: Resting Extremities: normal Deep Tendon Reflex Grade: Normal +2 - Labs Labs: Abnormal Labs 03/07/19 03/07/19 03/08/19 19:14 19:18 06:32 WBC 12.8 H MCV 78 L MCH 27 L [place] % (Auto) 8.2 H [place] # 1.1 H POC Glucose 111 H 126 H Laboratory Results - last 24 hr 03/07/19 03/07/19 03/07/19 19:14 19:14 19:18 WBC 12.8 H RBC 4.81 Hgb 12.9 Hct 37.4 MCV 78 L MCH 27 L MCHC 34 RDW 14.8 Plt Count 264 Lymph % (Auto) 31.3 [place] % (Auto) 8.2 H Eos % (Auto) 1.3 Baso % (Auto) 0.9 Lymph # 4.0 [place] # 1.1 H Eos # 0.2 Baso # 0.1 Seg Neutrophils % 58.3 Seg Neutrophils # 7.5 Creatinine 0.7 Estimated GFR > 60 POC Glucose 111 H Uric Acid 6.2 AST 17 ALT 14 Lactate Dehydrogenase 164 Blood Type Antibody Screen 03/07/19 03/08/19 19:25 06:32 WBC RBC Hgb Hct MCV MCH MCHC RDW Plt Count Lymph % (Auto) [place] % (Auto) Eos % (Auto) Baso % (Auto) Lymph # [place] # Eos # Baso # Seg Neutrophils % Seg Neutrophils # Creatinine Estimated GFR POC Glucose 126 H Uric Acid AST ALT Lactate Dehydrogenase Blood Type O POSITIVE Antibody Screen Negative
[2019-03-08] MEDS ORDERED: MAGNESIUM SULFATE 40GM/1000ML 40 GM/1,000 ML BAG IV SCH (08:00)
[2019-03-08] MEDS ORDERED: GLUCOPHAGE PO SCH (08:00)
[2019-03-08] MEDS ORDERED: APRESOLINE IV ONE ×2 (08:00→10:00)
[2019-03-08] MEDS: GLUCOPHAGE PO SCH ×2 (08:48→17:55)
--- NOTE | 2019-03-08 09:37 | Event Note ---
Date: 03/08/19 blood pressure reviewed 231/146, noted trending up since this morning. called nurse Ivelisse and advised she needs a dose of hydralizine 10mg now. Dr. Chadwick consulted.
[2019-03-08] MEDS ORDERED: BENADRYL PO ONE (09:41)
--- NOTE | 2019-03-08 10:07 | Event Note ---
Date: 03/08/[address] Solorio and the goal is to deliver after second dose of steroids or sooner for uncontrolled blood pressures. Pt blood pressure at this time is in the mild range after hydralazine has been given. Will con't to monitor closely at this time but keep pt npo.
[2019-03-08] MEDS ORDERED: ZOFRAN IV PRN (11:39)
[2019-03-08] MEDS: PRENATAL VITAMIN PO SCH (11:56)
--- NOTE | 2019-03-08 12:26 | Event Note ---
Date: 03/08/19 Pt states she does not have chest pain at this time or SOB.She states does feel hot and weak and tired. I d/w that this can sometimes be the side affects of the magnesium and that we will draw a stat magnesium level at this time. UOP is normal and blood pressures have responded to the meds given earlier. EKG has not been done yet though ordered stat. Tech on the way to perform now. I d/w plan of care. She expressed understanding and agrees with plan of care.
[2019-03-08] MEDS ORDERED: EMLA TP ONE (12:32)
--- NOTE | 2019-03-08 13:35 | Event Note ---
Date: 03/08/19 received call from Ivelisse MORRIS, states Mag leve 16.1. Advsied to d/c mag immediately. requested CN JOO assess patient and to determine if lab was drawn from site above IV site. Pulse ox 99% on RA. leve to be redrawn.
[2019-03-08] MEDS: TYLENOL PO PRN ×2 (13:49→20:57)
[2019-03-08] MEDS: LACTATED RINGERS 1,000 ML IV SCH (18:27)
--- NOTE | 2019-03-08 19:49 | Consultation ---
History of Present Illness Consult date: 03/08/19 Past History Past Medical History: other (see H&P) Past Surgical History: other (see H&P) TRANSPORTATION DIRECTOR History: other (see H&P) Family/Genetic History: other (see H&P) - Obstetrical History : 3 Medications and Allergies Allergies Allergy/AdvReac Type Severity Reaction Status Date / Time glyburide Allergy Rash Verified 02/07/19 20:17 shellfish derived AdvReac Severe Anaphylaxis Verified 01/04/19 15:28 Home Medications Medication Instructions Recorded Confirmed Last Taken Type Labetalol [Labetalol 200mg TAB] 200 mg PO BID 01/16/19 01/16/19 01/16/19 10:00 History Labetalol HCl [Labetalol 300mg TAB] 600 mg PO TID #90 tablet 02/12/19 Unknown Rx Active Meds: Active Medications Acetaminophen (Tylenol) 650 mg PO Q4H PRN PRN Reason: Pain MILD(1-3)/Fever >100.5/ARRIAZA Last Admin: 03/08/19 13:49 Dose: 650 mg Documented by: Betamethasone Acet/Betameth SodPhos (Celestone Soluspan) 12 mg IM Q24H JOVANI Stop: 03/08/19 21:01 Last Admin: 03/07/19 21:18 Dose: 12 mg Documented by: Docusate Sodium (Colace) 100 mg PO Q12H PRN PRN Reason: Constipation Magnesium Sulfate (Magnesium Sulfate 40gm/1000ml) 40 gm in 1,000 mls @ 50 mls/hr IV DIRECT JOVANI Last Admin: 03/08/19 08:51 Dose: 2 gm/hr, 50 mls/hr Documented by: Lactated Ringer's (Lactated Ringers) 1,000 mls @ 75 mls/hr IV DIRECT [facility] Last Admin: 03/08/19 18:27 Dose: 75 mls/hr Documented by: Labetalol HCl (Normodyne) 400 mg PO TID [facility] Last Admin: 03/08/19 13:48 Dose: 400 mg Documented by: Metformin HCl (Glucophage) 500 mg PO BIDDIAB [facility] Last Admin: 03/08/19 17:55 Dose: 500 mg Documented by: Multivitamins/Iron/Calcium ( Vitamin) 1 each PO QDAY [facility] Last Admin: 03/08/19 11:56 Dose: Not Given Documented by: Ondansetron HCl (Zofran) 4 mg IV Q6H PRN PRN Reason: Nausea And Vomiting Last Admin: 03/08/19 11:54 Dose: 4 mg Documented by: - Vital Signs Vital signs: Vital Signs Pulse BP 91 H 190/96 03/07/19 18:04 03/07/19 18:04 Temp Pulse Resp BP Pulse Ox 98.5 F 88 18 137/81 98 03/08/19 16:00 03/08/19 19:43 03/08/19 16:00 03/08/19 19:01 03/08/19 19:43 Results Result Diagrams: 03/07/19 19:14 03/07/19 19:14 Abnormal lab results 03/07/19 03/07/19 03/08/19 Range/Units 17:00 17:00 06:32 POC Glucose 126 H (70-105) Magnesium (1.7-2.3) mg/dL Urine Creatinine 64.0 H (0.1-20.0) mg/dL Urine Total Protein 19 H (5-11.8) mg/dL 03/08/19 03/08/19 03/08/19 Range/Units 10:38 11:06 12:23 POC Glucose 122 H (70-105) Magnesium 16.10 H 17.10 H (1.7-2.3) mg/dL Urine Creatinine (0.1-20.0) mg/dL Urine Total Protein (5-11.8) mg/dL 03/08/19 03/08/19 Range/Units 13:41 16:41 POC Glucose (70-105) Magnesium 4.40 H 4.80 H (1.7-2.3) mg/dL Urine Creatinine (0.1-20.0) mg/dL Urine Total Protein (5-11.8) mg/dL All other labs normal. Assessment and Plan [facility] Full consult faxed to unit A: 1. IUP at 35 6/7 weeks gestation 2. CHTN with suspected superimposed preeclampsia 3.IUGR with elevated UA dopplers 4. GDM 5. history of preeclampsia 6.prior CS 7. non compliance Rec: 1. Labetalol increased to 400mg TID Continue IV Hydralazine prn SBP>160mmhg DBP>110mmhg 2. Complete course of steroids 3. NICU consult 4. If the BP can be stabilized, proceed with delivery after completion of steroids Immediate delivery is advised if her severe HTN persists despite medication adjustments , pt develops symptoms of preeclampsia or if the status is non reassuring 5. Continue accuchecks Fasting and PP if she is eating If she is NPO , perform accuchecks q4hr Initiate regular insulin sliding scale : for Blood sugar <110 - no insulin Blood sugar 121-150 give 4 units regular insulin Blood sugar 151-180 give 6 units regular insulin Blood sugar 181-210 give 10 units regular insulin D/W Dr Chadwick
[2019-03-08] MEDS: CELESTONE SOLUSPAN IM SCH (20:58)
--- NOTE | 2019-03-09 07:24 | Progress Note ---
Assessment and Plan A: 1. IUP at 36 0/7 weeks gestation 2. CHTN with suspected superimposed preeclampsia 3.IUGR with elevated UA dopplers 4. GDM 5. history of preeclampsia 6. prior CS 7. non compliance Rec per [facility]: 1. Labetalol increased to 400mg TID Continue IV Hydralazine prn SBP>160mmhg DBP>110mmhg 2. Complete course of steroids: 3. NICU consult done 4. If the BP can be stabilized, proceed with delivery after completion of steroids Immediate delivery is advised if her severe HTN persists despite medication adjustments , pt develops symptoms of preeclampsia or if the status is non reassuring 5. Continue accuchecks Fasting and PP if she is eating If she is NPO , perform accuchecks q4hr Initiate regular insulin sliding scale : for Blood sugar <110 - no insulin Blood sugar 121-150 give 4 units regular insulin Blood sugar 151-180 give 6 units regular insulin Blood sugar 181-210 give 10 units regular insulin - Patient Problems (1) 36 weeks gestation of Current Visit: Yes Status: Acute (2) Chronic hypertension with exacerbation during in third trimester Current Visit: Yes Status: Acute Plan to address problem: Steroids completed, will proceed with delivery as recommended. (3) Gestational diabetes mellitus (GDM) during controlled on oral hypoglycemic therapy Onset Date: ~02/11/19 Current Visit: Yes Status: Acute Plan to address problem: SSI started since she NPO (4) History of Crohn's disease Current Visit: Yes Status: Acute (5) IUGR (intrauterine growth restriction) Current Visit: Yes Status: Acute (6) Previous section Onset Date: ~02/07/19 Current Visit: Yes Status: Acute Plan to address problem: Desires to proceed with repeat c/s with sterilization (7) Sickle cell trait Current Visit: Yes Status: Acute (8) Sterilization Current Visit: Yes Status: Acute Subjective - Subjective Principal diagnosis: IUP @ 36wga , HTN Patient reports: movement normal, no new complaints, no other (denies ARRIAZA, visual changes or epigastric pain) Objective - Vital Signs Vital Signs: Vital Signs - 12hr 03/08/19 03/08/19 03/08/19 19:23 19:28 19:33 Temperature Pulse Rate 86 82 93 H Respiratory Rate Blood Pressure O2 Sat by Pulse 99 99 99 Oximetry 03/08/19 03/08/19 03/08/19 19:38 19:43 19:48 Temperature Pulse Rate 88 88 86 Respiratory Rate Blood Pressure O2 Sat by Pulse 100 98 99 Oximetry 03/08/19 03/08/19 03/08/19 19:53 19:58 20:00 Temperature 96.8 F L Pulse Rate 87 90 Respiratory 16 Rate Blood Pressure O2 Sat by Pulse 86 87 Oximetry 03/08/19 03/08/19 03/08/19 20:01 20:03 20:08 Temperature Pulse Rate 90 91 H 91 H Respiratory Rate Blood Pressure 134/88 O2 Sat by Pulse 100 100 Oximetry 03/08/19 03/08/19 03/08/19 20:13 20:18 20:23 Temperature Pulse Rate 90 91 H 88 Respiratory Rate Blood Pressure O2 Sat by Pulse 98 99 100 Oximetry 03/08/19 03/08/19 03/08/19 20:28 20:33 20:38 Temperature Pulse Rate 97 H 91 H 95 H Respiratory Rate Blood Pressure O2 Sat by Pulse 100 99 100 Oximetry 03/08/19 03/08/19 03/08/19 20:43 20:48 20:53 Temperature Pulse Rate 93 H 92 H 94 H Respiratory Rate Blood Pressure O2 Sat by Pulse 99 99 99 Oximetry 03/08/19 03/08/19 03/08/19 20:58 21:03 21:08 Temperature Pulse Rate 96 H 95 H 86 Respiratory Rate Blood Pressure O2 Sat by Pulse 100 99 99 Oximetry 03/08/19 03/08/19 03/08/19 21:13 21:18 21:23 Temperature Pulse Rate 82 81 84 Respiratory Rate Blood Pressure O2 Sat by Pulse 99 99 98 Oximetry 03/08/19 03/08/19 03/08/19 21:28 21:33 21:38 Temperature Pulse Rate 85 88 89 Respiratory Rate Blood Pressure O2 Sat by Pulse 98 98 97 Oximetry 03/08/19 03/08/19 03/08/19 21:43 21:48 21:53 Temperature Pulse Rate 82 80 83 Respiratory Rate Blood Pressure O2 Sat by Pulse 98 98 98 Oximetry 03/08/19 03/08/19 03/08/19 21:58 22:01 22:03 Temperature Pulse Rate 84 83 83 Respiratory Rate Blood Pressure 118/70 O2 Sat by Pulse 97 98 Oximetry 08/16/19 08/16/19 08/16/19 22:08 22:13 22:18 Temperature Pulse Rate 83 81 83 Respiratory Rate Blood Pressure O2 Sat by Pulse 98 98 98 Oximetry 03/08/19 03/08/19 03/08/19 22:23 22:28 22:33 Temperature Pulse Rate 82 78 78 Respiratory Rate Blood Pressure O2 Sat by Pulse 99 97 97 Oximetry 03/08/19 03/08/19 03/08/19 22:34 22:38 22:43 Temperature Pulse Rate 79 82 83 Respiratory Rate Blood Pressure O2 Sat by Pulse 94 99 96 Oximetry 03/08/19 03/08/19 03/08/19 22:48 22:53 22:58 Temperature Pulse Rate 83 85 80 Respiratory Rate Blood Pressure O2 Sat by Pulse 99 99 95 Oximetry 03/08/19 03/08/19 03/08/19 22:59 23:01 23:03 Temperature Pulse Rate 79 83 78 Respiratory Rate Blood Pressure 135/86 O2 Sat by Pulse 94 95 Oximetry 03/08/19 03/08/19 03/08/19 23:05 23:08 23:10 Temperature Pulse Rate 77 76 82 Respiratory Rate Blood Pressure O2 Sat by Pulse 91 94 93 Oximetry 03/08/19 03/08/19 03/08/19 23:13 23:18 23:23 Temperature Pulse Rate 80 81 87 Respiratory Rate Blood Pressure O2 Sat by Pulse 94 100 99 Oximetry 03/08/19 03/08/19 03/08/19 23:28 23:33 23:38 Temperature Pulse Rate 90 86 85 Respiratory Rate Blood Pressure O2 Sat by Pulse 100 100 99 Oximetry 03/08/19 03/08/19 03/08/19 23:43 23:48 23:53 Temperature Pulse Rate 88 85 90 Respiratory Rate Blood Pressure O2 Sat by Pulse 99 91 99 Oximetry 03/08/19 03/09/19 03/09/19 23:58 00:02 00:03 Temperature Pulse Rate 88 83 84 Respiratory Rate Blood Pressure 140/97 O2 Sat by Pulse 98 99 Oximetry 03/09/19 03/09/19 03/09/19 00:08 00:10 00:13 Temperature Pulse Rate 84 88 94 H Respiratory Rate Blood Pressure O2 Sat by Pulse 99 93 93 Oximetry 03/09/19 03/09/19 03/09/19 00:18 00:23 00:28 Temperature Pulse Rate 82 82 82 Respiratory Rate Blood Pressure O2 Sat by Pulse 99 98 97 Oximetry 03/09/19 03/09/19 03/09/19 00:31 00:33 00:38 Temperature Pulse Rate 65 85 79 Respiratory Rate Blood Pressure O2 Sat by Pulse 92 100 100 Oximetry 03/09/19 03/09/19 03/09/19 00:43 00:48 00:53 Temperature Pulse Rate 81 82 88 Respiratory Rate Blood Pressure O2 Sat by Pulse 100 100 99 Oximetry 03/09/19 03/09/19 03/09/19 00:58 01:01 01:03 Temperature Pulse Rate 83 81 80 Respiratory Rate Blood Pressure 136/78 O2 Sat by Pulse 100 100 Oximetry 03/09/19 03/09/19 03/09/19 02:01 03:01 04:01 Temperature Pulse Rate 80 86 95 H Respiratory Rate Blood Pressure 129/71 138/79 151/83 O2 Sat by Pulse Oximetry 03/09/19 05:01 Temperature Pulse Rate 102 H Respiratory Rate Blood Pressure 135/95 O2 Sat by Pulse Oximetry - Labs Labs: Abnormal Labs 03/07/19 03/07/19 03/07/19 17:00 17:00 19:14 WBC 12.8 H MCV 78 L MCH 27 L [place] % (Auto) 8.2 H [place] # 1.1 H POC Glucose Magnesium Urine Creatinine 64.0 H Ur Total Protein 24 Hr 418.00 H Urine Total Protein 19 H 03/07/19 03/08/19 03/08/19 19:18 06:32 10:38 WBC MCV MCH [place] % (Auto) [place] # POC Glucose 111 H 126 H 122 H Magnesium Urine Creatinine Ur Total Protein 24 Hr Urine Total Protein 03/08/19 03/08/19 03/08/19 11:06 12:23 13:41 WBC MCV MCH [place] % (Auto) [place] # POC Glucose Magnesium 16.10 H 17.10 H 4.40 H Urine Creatinine Ur Total Protein 24 Hr Urine Total Protein 03/08/19 03/08/19 03/08/19 16:41 21:02 23:43 WBC MCV MCH [place] % (Auto) [place] # POC Glucose 110 H Magnesium 4.80 H 4.40 H Urine Creatinine Ur Total Protein 24 Hr Urine Total Protein 03/09/19 03/09/19 00:13 07:20 WBC MCV MCH [place] % (Auto) [place] # POC Glucose 115 H 134 H Magnesium Urine Creatinine Ur Total Protein 24 Hr Urine Total Protein Laboratory Results - last 24 hr 03/07/19 03/07/19 03/08/19 17:00 17:00 10:38 POC Glucose 122 H Magnesium Urine Total Volume 2200 2200 Urine Creatinine 64.0 H Height (in) 63.0 Weight (lb) 265.0 Creatinine Clearance 110 Ur Total Protein 24 Hr 418.00 H Urine Total Protein 19 H 03/08/19 03/08/19 03/08/19 11:06 12:23 13:41 POC Glucose Magnesium 16.10 H 17.10 H 4.40 H Urine Total Volume Urine Creatinine Height (in) Weight (lb) Creatinine Clearance Ur Total Protein 24 Hr Urine Total Protein 03/08/19 03/08/19 03/08/19 16:41 21:02 23:43 POC Glucose 110 H Magnesium 4.80 H 4.40 H Urine Total Volume Urine Creatinine Height (in) Weight (lb) Creatinine Clearance Ur Total Protein 24 Hr Urine Total Protein 03/09/19 03/09/19 00:13 07:20 POC Glucose 115 H 134 H Magnesium Urine Total Volume Urine Creatinine Height (in) Weight (lb) Creatinine Clearance Ur Total Protein 24 Hr Urine Total Protein
[2019-03-09] MEDS: NORMODYNE PO SCH ×2 (07:52→20:57)
[2019-03-09] MEDS ORDERED: REGLAN IV ONE (08:00)
[2019-03-09] MEDS ORDERED: PITOCin/NS 20 UNIT/1000ML DRIP 20 UNITS/1,000 ML BAG IV SCH ×2 (08:00→13:00)
[2019-03-09] MEDS ORDERED: ceFAZolin 3 GM in NACL 0.9% 100 ML IV NR (08:00)
[2019-03-09] MEDS ORDERED: BICITRA PO ONE (08:00)
[2019-03-09] MEDS ORDERED: PEPCID IV ONE (08:00)
[2019-03-09 08:02] LABS: Hematocrit 37.5 % (30.3-42.9); Hemoglobin 12.9 gm/dl (10.1-14.3); Mean Corpuscular HGB Conc 35 % (30-34); Mean Corpuscular Volume 78 fl (79-97); Platelet Count 288 K/mm3 (140-440); Red Blood Count 4.81 M/mm3 (3.65-5.03); Red Cell Distribution Width 14.9 % (13.2-15.2)
[2019-03-09] MEDS: LACTATED RINGERS 1,000 ML IV SCH ×2 (08:08→09:55)
--- NOTE | 2019-03-09 09:35 | Consultation ---
Consult Note - Parent Education I met with parent(s) and discussed the following:: Need for NICU admission, Poss ible need for intubation and surfactant or other resp support, Temperature regulation, Possible need for IV fluids/TPN and IV antibiotics, Importance of providing breast milk & encouraged pumping aft delivery, Slow feeding advancement and monitoring of tolerance. NG/OG feeds, Need to monitor for jaundice Parent(s) demonstrated understanding of all the information:: Yes Additional Comment: 29 yo with CHTN, GDM, hx Crohn's disease, sickle cell trait, and previous 35 week delivery. Mother has had steroids x2 and magnesium. Discussed blood sugars, respiratory status, jaundice, NICU visitation, feedings. Verblaized understanding. Assessment and Plan - Assessment Gestation:: 36 Estimated Weight: 4#13 Baby's gender: Male - Plan Plan: Will attend delivery Please call NICU with questions
--- NOTE | 2019-03-09 09:40 | Anesthesia Consultation ---
Anesthesia Consult and Med Hx Date of service: 03/09/19 - Airway Anesthetic Teeth Evaluation: Good ROM Head & Neck: Adequate Mental/Hyoid Distance: Adequate Mallampati Class: Class II Intubation Access Assessment: Probably Good - Pulmonary Exam CTA: Yes - Cardiac Exam Cardiac Exam: RRR - Pre-Operative Health Status ASA Pre-Surgery Classification: ASA3 Proposed Anesthetic Plan: Spinal - Pulmonary Hx Asthma: Yes (last attack 3yrs ago) COPD: No Hx Pneumonia: No - Cardiovascular System Hx Hypertension: Yes (Pre-eclampsia) - Central Nervous System Hx Seizures: No Hx Psychiatric Problems: No - Endocrine Hx Renal Disease: No Hx End Stage Renal Disease: No Hx Hypothyroidism: No Hx Hyperthyroidism: No - Hematic Hx Anemia: No Hx Sickle Cell Disease: Yes (trait) - Other Systems Hx Alcohol Use: No Hx Obesity: Yes - Additional Comments Anesthesia Medical History Comments: Crohn's disease
--- NOTE | 2019-03-09 09:41 | Anesthesia Day of Surgery ---
Anesthesia Day of Surgery - Day of Surgery Patient Examined: Yes Patient H&P Reviewed: Yes Patient is NPO: Yes
[2019-03-09] MEDS ORDERED: NORMODYNE IV ONE (09:48)
[2019-03-09] MEDS ORDERED: DEXMEDETOMIDINE IV ONE (09:54)
[2019-03-09] MEDS ORDERED: LEVOPHED IV ONE (09:54)
[2019-03-09] MEDS ORDERED: MARCAINE 0.5% INFILTRATI ONE (09:54)
[2019-03-09] MEDS ORDERED: NACL 0.9% 250ML 250 ML ONE (09:55)
[2019-03-09] MEDS ORDERED: WATER FOR IRRIG STERILE IR ONE (11:20)
[2019-03-09] MEDS ORDERED: NACL 0.9% IR ONE (11:20)
[2019-03-09] MEDS ORDERED: ZOFRAN ONE (11:30)
[2019-03-09] MEDS ORDERED: TORADOL ONE (12:02)
--- NOTE | 2019-03-09 12:19 | Operative Report ---
Operative Report Operative Report: Date: 03/09/2019 Preoperative diagnosis: 1. Intrauterine at 36 weeks 2. Chronic hypertension with superimposed severe preeclampsia 3. Body mass index 47 4. Intrauterine growth restriction 5. Gestational diabetes 6. Previous delivery desires repeat delivery 7. Desires sterilization by salpingectomy Postoperative diagnosis: 1. Intrauterine at 36 weeks 2. Chronic hypertension with superimposed severe preeclampsia 3. Body mass index 47 4. Intrauterine growth restriction 5. Gestational diabetes 6. Previous delivery desires repeat delivery 7. Desires sterilization by salpingectomy Procedure: 1. Low uterine transverse incision for delivery 2. Bilateral salpingectomy for sterilization Surgeon: Maite Bautista MD Tire Man: Soham Cordero CNM Anesthesia: CSE Anesthesiologist: Francis Vilchis M.D. Estimated blood loss: 500 mL Urine out: 1000 mL Findings: Live born male . Weight 4 lbs. 13 oz. Apgars 8 at 1 minute and 9 at 5 minutes. Uterus grossly normal, tubes grossly normal, ovaries grossly normal. Procedure: After risk, benefits, complications, consequences and alternatives for this procedure were discussed with patient and consents were reviewed and signed, she was taken to the OR where combined spinal epidural anesthesia was placed. She was then placed in the left lateral tilt position, and prepped and draped in the usual sterile fashion. Timeout was performed, and an appropriate level of anesthesia was noted, a Pfannenstiel incision was made and extended to the fascia which was incised and extended in the lateral dir ections. The overlying fascia was sharply dissected away from the underlying rectus muscles in the superior and inferior directions. The midline was entered bluntly. The vesicouterine fold was incised and with blunt dissection the bladder flap was created. A transverse incision was made in the lower uterine segment and extended in superiolateral direction with finger fractionation. Clear fluid was noted. The was delivered from cephalic OA position. Mouth and nose were bulb suctioned. Spontaneous cry and excellent tone were noted. After 45 seconds delay the cord was doubly clamped and cut. The infant was given to /resuscitation team present. The placenta was manually extracted. The placenta was sent to pathology. The uterus was then exteriorized and cleared of any further products of conception or placental tissue. The incision was reapproximated using 0 Vicryl in a running interlocking stitch. Further suture 0 Vicryl in imbricating fashion was placed for hemostasis. Grossly normal uterus, tubes and ovaries were noted. Once confirmation was obtained from the patient received sterilization, the right tube was grasped a [place] clamp and elevated. The mesosalpinx was grasped and cauterized and incised in a serial fashion, and salpingectomy was performed. The same procedure was performed on the left tube. Tissue sent to pathology. Once hemostasis was noted, the uterus was allowed back into the pelvic cavity. The pelvis was irrigated with warm normal saline. Again hemostasis was noted on the mesosalpinx bilaterally and incision.. Surgicel applied for further hemostasis. Interceed was then placed to prevent adhesions. Then attention was turned to the rectus muscles. The rectus muscles reapproximated using 0 Vicryl in a simple interrupted stitch x 3. Once hemostasis was noted, the fascia was reapproximated using 0 Vicryl running stitch fashion. Once hemostasis was noted skin incision was reapproximated using 4-0 Vicryl on a Jose Martin needle in a subcuticular manner. Counts were correct 3. Patient tolerated procedure well state recovery room in stable condition.
[2019-03-09] MEDS ORDERED: TUCKS PAD TP PRN (12:22)
[2019-03-09] MEDS ORDERED: MILK OF MAGNESIA PO PRN (12:22)
[2019-03-09] MEDS ORDERED: NORMODYNE IV PRN (12:22)
[2019-03-09] MEDS ORDERED: MYLICON PO PRN (12:22)
[2019-03-09] MEDS ORDERED: LANSINOH TP PRN (12:22)
[2019-03-09] MEDS ORDERED: MORPHINE IV PRN (12:22)
[2019-03-09] MEDS ORDERED: MAGNESIUM SULFATE 2GM/50ML 2 GM/50 ML BAG IV ONE (12:22)
[2019-03-09] MEDS ORDERED: NARCAN 0.4 MG/1 ML IV PRN ×2 (12:22→12:38)
--- NOTE | 2019-03-09 12:37 | Post Anesthesia Evaluation ---
- Post Anesthesia Evaluation Patient Participated: Yes Airway Patent: Yes Stable Respiratory Function: Yes Nausea/Vomiting: No Temp > 96.8F: Yes Pain Manageable: Yes Adequeate Hydration: Yes Anesthesia Complications: No Block Receding Appropriately: Yes
[2019-03-09] MEDS ORDERED: PHENERGAN PO PRN (12:38)
[2019-03-09] MEDS ORDERED: ZOFRAN IV PRN (12:38)
[2019-03-09] MEDS ORDERED: NUBAIN IV PRN (12:38)
[2019-03-09] MEDS ORDERED: PHENERGAN PR PRN (12:38)
[2019-03-09] MEDS ORDERED: ANCEF/NS 1 GM/50 ML 1 GM/50 ML BAG IV SCH (13:00)
[2019-03-09] MEDS ORDERED: MAGNESIUM SULFATE 40GM/1000ML 40 GM/1,000 ML BAG IV SCH (13:00)
[2019-03-09] MEDS ORDERED: SODIUM CHLORIDE FLUSH SYRINGE 10 ML IV NR ×2 (13:00)
[2019-03-09] MEDS: MORPHINE IV PRN (15:50)
[2019-03-09] MEDS ORDERED: DILAUDID IV ONE (17:13)
[2019-03-09] MEDS: TORADOL IV SCH (18:11)
[2019-03-09] MEDS: ANCEF/NS 1 GM/50 ML 1 GM/50 ML BAG IV SCH (20:57)
--- NOTE | 2019-03-09 21:38 | Event Note ---
Date: 03/09/19 BPs reviewed, last two values elevated 170-190s/90-100s. Called RN to recheck BP now, she states afternoon dose of labetalol was missed, last dose was given at 2056. Current BP is 175/91. Order to give 10mg hydralazine IVP now, as ordered PRN for BP >160/100, recheck BP in 15 minutes and call provider back with result.
[2019-03-09] MEDS: APRESOLINE IV PRN (21:52)
[2019-03-09] MEDS: TYLENOL PO SCH (21:53)
[2019-03-09 23:40] LABS: Hematocrit 35.9 % (30.3-42.9); Hemoglobin 12.5 gm/dl (10.1-14.3)
[2019-03-10] MEDS ORDERED: AMBIEN PO PRN (00:48)
[2019-03-10] MEDS: TORADOL IV SCH ×3 (01:03→12:35)
[2019-03-10] MEDS: LACTATED RINGERS 1,000 ML IV SCH (04:17)
[2019-03-10] MEDS: TYLENOL PO SCH (04:19)
[2019-03-10] MEDS: ANCEF/NS 1 GM/50 ML 1 GM/50 ML BAG IV SCH (06:34)
[2019-03-10] MEDS: NORMODYNE PO SCH ×3 (06:40→20:52)
[2019-03-10] MEDS: MORPHINE IV PRN (06:40)
[2019-03-10] MEDS: APRESOLINE IV PRN ×2 (06:41→15:00)
[2019-03-10] MEDS ORDERED: NORMODYNE PO ONE (08:12)
--- NOTE | 2019-03-10 08:27 | Progress Note ---
<ALISTAIR SMITH - Last Filed: 03/10/19 08:08> Assessment and Plan POD 1 Patient resting in bed, magnesium infusing per IV as ordered. Patient reports feeling "a little better but I'm still hurting, pain is 6.5 right now". Pt was recently medicated for pain and elevated BPs at 0641. BP at current is 134/71. Patient denies any ARRIAZA, visual disturbances, chest pain, difficulty breathing, SOB, RUQ or epigastric pain, heavy bleeding. She reports mild tenderness on palpation of fundus; FF, ML, @U. Vaginal bleeding is scant. Pads changed and diane care provided. Recent mag level at 0655 is 5.1. Clear yellow urine noted draining to garcia bag. Post delivery H&H 12.5/35.9. DWP POC to continue to monitor BPs and adjustment/administration of medications to keep BP <160/100. Plan for magnesium to be discontinued 24 hrs post delivery and will plan to begin ambulation which will likely help to decrease her pain level. Incision is dressed at this time, C/D/I, dressing to be removed this morning. Pt urged to continue use of IS and importance of frequent ambulation once cleared to be OOB. Pt agrees that she will feel much better when she can get up and move around, voicing complaints of pain d/t lying in bed. Pt reports is doing well in NICU. She desires to breastfeed but voices concern for "not having colostrum yet". DWP importance of pumping now and frequently to increase supply. RN notified to obtain pump for patient and to assist with pumping. Will continue current POC, will D/C mag at 1123 and continue to monitor BP post mag. - Patient Problems (1) 35 weeks gestation of Current Visit: Yes Status: Acute (2) Chronic hypertension with exacerbation during in third trimester Current Visit: Yes Status: Acute (3) Gestational diabetes mellitus (GDM) during controlled on oral hypoglycemic therapy Onset Date: ~02/11/19 Current Visit: Yes Status: Acute (4) History of Crohn's disease Current Visit: Yes Status: Acute (5) Previous section Onset Date: ~02/07/19 Current Visit: Yes Status: Acute (6) Sickle cell trait Current Visit: Yes Status: Acute (7) IUGR (intrauterine growth restriction) Current Visit: Yes Status: Acute Subjective - Subjective Date of service: 03/10/19 Principal diagnosis: PPD1 s/p rpt c/s with BTL; CHTN with severe pre-e Interval history: Menstrual History Regularity: regular Menses every: 28 days Duration: 6 LMP: 06/30/2018 LMP reliability: definite LMP character: normal test type: urine test Date: 08/23/2018 BC at conception: none Planned ? yes EDC Calculations LMP: 04/06/2019 EDC Confirmation: 04/06/2019 Gestational Age: 7 5/7 weeks Past History : 3 Term Births: 0 Premature Births: 1 Living Children: 1 Para: 1 Mult. Births: 0 Prev : 1 Prev. attempt? none Aborta: 1 Elect. Ab: 1 Spont. Ab: 0 Ectopics: 0 # 1 Delivery date: 2006 Delivery type: EAB # 2 Delivery date: 11/13/2011 Weeks Gestation: 35 labor: yes Delivery type: Hours of labor: 6 Anesthesia type: Spinal Delivery location: [facility] Sex: female weight: 6.44 Name: Michele Comments: gestational diabetes, pre-eclampsia/eclampsia Risk Factors: Smoked Tobacco Use: Never smoker Smokeless Tobacco Use: Never Passive smoke exposure: no Drug use: no HIV high-risk behavior: low risk Alcohol use: no Seatbelt use: preg-investment counselor % Dietary Counseling: pn yes Past Medical History: Reviewed history from 04/28/2016 and no changes required: Crohn's Disease--just dx 02/2011 Asthma-last inhaler use 2013 GDM used glyburide PIH with last delivery CHTN- HCTZ last taken in June 2018 Past Surgical History: Reviewed history from 11/13/2011 and no changes required: (11/13/2011) Past Medical History Surgery (Non-urogynecology physician): (11/13/2011) Abnormal PAP: negative GABRIELLA Exposure: negative Infertility: negative Uterine Anomaly: negative Uterine Surgery (not C/S): negative Other Gynecologic Problems: negative Social Hx: Patient is single no etoh, no illicit drug use, no tobacco use Smoking History: Patient has never smoked. Infection History Hx of STD: chlamydia HIV Risk Eval: low risk Hepatitis B Risk Eval: low risk Personal hx. of genital herpes: no Partner hx. of genital herpes: no Rash, Viral, or Febrile illness since last LMP? no Varicella/Chicken Pox Status: Previous Disease Infection History Comments: chlamydia 2018 Genetic History Congenital Heart Defect: Mom: no Dad: no Candido Disease: Mom: no Dad: no Thalassemia Mom: no Dad: no Neural Tube Defect Mom: no Dad: no Down's Syndrome Mom: no Dad: no Alvin-Sachs Mom: no Dad: no Sickle Cell Disease/Trait Dad: no Hemophilia Mom: no Dad: no Muscular Dystrophy Mom: no Dad: no Cystic Fibrosis Mom: no Dad: no [place] Chorea Mom: no Dad: no Mental Retardation Mom: no Dad: no Fragile X Mom: no Dad: no Other Genetic/Chromosomal Disorder Mom: no Dad: no Child w/other defect Mom: no Dad: no Comments/Counseling: + sickle cell trait Enviromental Exposures Enviromental Exposures Reviewed Xray Exposure: no Medication, drug, or alcohol use since LMP: no Chemical/Other Exposure: no Exposure to Cat Liter: no Hx of Parvovirus (Fifth Disease): no Occupational Exposure to Children: none FALSECurrent Allergies (reviewed today): * GLYBURIDE (Critical) * SEAFOOD (Critical) Patient reports: appetite normal, voiding normally (garcia catheter in place, draining clear yellow urine), flatus, pain poorly controlled (Pain medications administered 1 hr ago, pt reports "still 6.5 but getting a little better"), no ambulating normally (bedrest d/t mag infusion) : in NICU Objective - Vital Signs Latest vital signs: Vital Signs Temp Pulse Resp BP Pulse Ox 03/10/19 08:07 79 97 03/10/19 08:02 81 97 03/10/19 07:57 87 97 03/10/19 07:52 84 134/71 96 03/10/19 07:47 83 96 03/10/19 07:43 85 177/87 03/10/19 07:42 92 H 99 03/10/19 07:37 82 92 03/10/19 07:32 82 91 03/10/19 07:28 85 95 03/10/19 07:26 86 93 03/10/19 07:22 82 164/81 97 03/10/19 07:20 85 94 03/10/19 07:18 84 95 03/10/19 07:15 85 94 08/18/19 07:12 79 97 08/18/19 07:08 86 98 08/18/19 07:02 89 98 08/18/19 06:58 92 H 99 08/18/19 06:52 85 182/91 94 08/18/19 06:50 84 93 08/18/19 06:48 84 96 08/18/19 06:43 78 97 08/18/19 06:42 74 94 08/18/19 06:41 81 179/98 08/18/19 06:40 81 179/98 08/18/19 06:37 77 99 08/18/19 06:32 77 97 08/18/19 06:31 88 179/98 08/18/19 06:30 86 86 08/18/19 06:27 74 96 08/18/19 06:25 76 91 08/18/19 06:23 84 97 08/18/19 06:22 77 202/93 08/18/19 06:20 81 87 08/18/19 06:18 77 98 08/18/19 06:15 77 93 08/18/19 06:12 82 99 08/18/19 06:07 82 91 08/18/19 06:06 72 93 08/18/19 06:02 74 98 08/18/19 06:01 76 93 08/18/19 05:57 77 97 08/18/19 05:52 79 184/86 96 08/18/19 05:51 81 92 08/18/19 05:47 78 96 08/18/19 05:46 77 89 08/18/19 05:42 71 98 08/18/19 05:41 76 94 08/18/19 05:37 75 92 08/18/19 05:34 75 92 08/18/19 05:32 72 93 08/18/19 05:28 75 93 08/18/19 05:27 80 95 08/18/19 05:23 77 93 08/18/19 05:22 77 181/91 95 08/18/19 05:17 78 98 08/18/19 05:12 93 H 98 08/18/19 05:10 89 93 08/18/19 05:07 83 86 08/18/19 05:05 74 89 08/18/19 05:02 84 92 08/18/19 05:00 78 94 08/18/19 04:57 77 96 08/18/19 04:55 86 85 08/18/19 04:52 76 176/109 95 08/18/19 04:49 90 88 08/18/19 04:47 80 96 08/18/19 04:44 92 H 87 08/18/19 04:42 89 96 08/18/19 04:39 83 92 08/18/19 04:37 81 91 08/18/19 04:33 83 89 08/18/19 04:32 77 91 08/18/19 04:28 81 90 08/18/19 04:27 76 97 08/18/19 04:22 81 159/88 96 08/18/19 04:18 77 168/92 08/18/19 04:17 80 98 08/18/19 04:12 85 97 08/18/19 04:08 83 167/103 08/18/19 04:07 83 98 08/18/19 04:02 87 99 08/18/19 03:57 88 98 08/18/19 03:56 85 92 18/19 03:52 81 174/102 96 08/18/19 03:49 77 90 08/18/19 03:47 78 98 08/18/19 03:44 77 92 08/18/19 03:42 78 98 08/18/19 03:38 83 94 08/18/19 03:37 86 96 08/18/19 03:32 87 93 08/18/19 03:31 74 94 08/18/19 03:27 89 94 08/18/19 03:25 83 94 08/18/19 03:22 84 184/89 98 08/18/19 03:19 89 90 08/18/19 03:17 81 97 08/18/19 03:12 78 97 08/18/19 03:08 84 86 08/18/19 03:07 90 93 08/18/19 03:03 90 88 08/18/19 03:02 78 98 08/18/19 02:57 76 99 08/18/19 02:52 80 144/83 97 08/18/19 02:47 80 97 08/18/19 02:42 81 98 08/18/19 02:41 81 94 08/18/19 02:37 79 97 08/18/19 02:33 88 93 08/18/19 02:32 76 98 08/18/19 02:27 80 98 03/10/19 02:23 89 169/76 03/10/19 02:22 93 H 98 03/10/19 02:18 86 94 03/10/19 02:17 91 H 91 03/10/19 02:13 86 94 03/10/19 02:12 85 97 03/10/19 02:08 86 93 03/10/19 02:07 84 96 03/10/19 02:02 87 96 03/10/19 01:57 80 97 03/10/19 01:52 82 120/66 96 03/10/19 01:47 84 96 03/10/19 01:42 82 97 03/10/19 01:37 92 H 97 03/10/19 01:32 86 98 03/10/19 01:27 88 97 03/10/19 01:22 83 125/65 97 03/10/19 01:17 87 98 03/10/19 00:52 77 140/77 03/10/19 00:22 86 148/89 03/09/19 23:52 84 138/72 03/09/19 23:19 83 163/92 03/09/19 23:09 81 163/94 03/09/19 22:59 82 158/86 03/09/19 22:50 83 166/96 03/09/19 22:40 87 179/93 03/09/19 22:25 86 169/87 03/09/19 22:10 87 178/90 03/09/19 21:55 88 181/90 03/09/19 21:52 85 175/91 03/09/19 21:40 85 175/91 03/09/19 20:04 88 195/104 03/09/19 19:04 82 176/93 03/09/19 18:04 90 142/84 03/09/19 17:04 92 H 158/79 03/09/19 16:04 94 H 132/65 03/09/19 15:04 95 H 130/66 03/09/19 14:04 83 122/68 03/09/19 13:30 98.1 F 88 20 98/45 100 03/09/19 13:15 80 14 106/67 100 03/09/19 13:00 78 16 110/61 99 08/17/19 12:45 80 17 110/56 99 03/09/19 12:30 76 18 110/60 99 03/09/19 12:25 78 105/57 99 03/09/19 12:20 97.7 F 77 18 105/60 99 03/09/19 10:31 90 98 03/09/19 10:26 93 H 99 03/09/19 10:21 89 99 03/09/19 10:16 92 H 98 03/09/19 10:11 94 H 98 03/09/19 10:06 92 H 97 03/09/19 10:01 94 H 100 03/09/19 09:59 88 93 03/09/19 09:56 94 H 98 03/09/19 09:51 91 H 99 03/09/19 09:46 91 H 99 03/09/19 09:41 90 98 03/09/19 09:40 93 H 179/102 03/09/19 09:36 98 H 98 03/09/19 09:31 94 H 99 03/09/19 09:26 94 H 99 03/09/19 09:21 96 H 99 03/09/19 09:16 104 H 99 03/09/19 09:11 94 H 99 03/09/19 09:06 99 H 99 03/09/19 09:01 95 H 98 03/09/19 08:56 99 H 100 03/09/19 08:51 103 H 98 03/09/19 08:46 101 H 99 03/09/19 08:41 98 H 98 03/09/19 08:36 101 H 94 03/09/19 08:35 98 H 94 03/09/19 08:31 98 H 100 03/09/19 08:26 104 H 96 03/09/19 08:21 102 H 99 03/09/19 08:16 103 H 98 03/09/19 08:11 107 H 96 Intake and Output 03/09/19 03/10/19 03/10/19 23:59 07:59 15:59 Intake Total 1050 Output Total 410 Balance 640 Intake: IV 1050 ANCEF/NS 1 GM/50 ML 1 gm 50 In 50 ml @ 100 mls/hr IV Q8H [facility] Rx#:[id number] Lactated Ringers 1,000 ml 1000 @ 75 mls/hr IV DIRECT [facility] Rx#:[id number] Output: Urine 410 Indwelling Catheter 410 Other: Total, Output Amount 110 - Exam Breasts: Present: normal Cardiovascular: Present: Regular rate, Normal S1, Normal S2 Lungs: Present: Clear to auscultation, Normal air movement Abdomen: Present: normal appearance, soft, tenderness (mild with fundal massage), normal bowel sounds Vulva: both: normal Uterus: Present: normal, firm, fundal height at umbilicus Extremities: Present: normal Deep Tendon Reflex Grade: Normal +2 Incision: Present: dressed (C/D/I) - Labs Labs: Abnormal lab results 03/09/19 03/09/19 03/09/19 Range/Units 07:17 19:19 23:32 Magnesium 5.40 H 5.70 H 6.30 H (1.7-2.3) mg/dL 03/10/19 Range/Units 06:55 Magnesium 5.10 H (1.7-2.3) mg/dL <CLARITZA TAN D - Last Filed: 03/10/19 11:55> Assessment and Plan Patient resting in bed, trying to breast feed, no complaints. +flatus. Lungs clear (B), breast(B) slightly engorged. Incision dressed/dry. +BS. Increased Labetalol to 600mg tid. She did not get a FBS, will perform Fasting and 2hPP BS. UO has not been strictly monitored, I emptied 1400mL urine at 1115 today. Will allow transfer to floor at 1300. Orders discussed RN. - Patient Problems (1) 36 weeks gestation of Current Visit: Yes Status: Acute (2) Chronic hypertension with exacerbation during in third trimester Current Visit: Yes Status: Acute (3) Gestational diabetes mellitus (GDM) during controlled on oral hypoglycemic therapy Onset Date: ~02/11/19 Current Visit: Yes Status: Acute (4) History of Crohn's disease Current Visit: Yes Status: Acute (5) IUGR (intrauterine growth restriction) Current Visit: Yes Status: Acute (6) Previous section Onset Date: ~02/07/19 Current Visit: Yes Status: Acute (7) Sickle cell trait Current Visit: Yes Status: Acute (8) Sterilization Current Visit: Yes Status: Acute Objective - Vital Signs Latest vital signs: Vital Signs Temp Pulse Resp BP Pulse Ox 03/10/19 11:08 82 96 08/18/19 11:02 92 H 97 08/18/19 10:58 82 98 08/18/19 10:53 82 94 08/18/19 10:52 80 97 08/18/19 10:47 79 95 08/18/19 10:43 82 94 08/18/19 10:42 83 95 08/18/19 10:37 82 97 08/18/19 10:33 94 H 97 08/18/19 10:27 88 97 08/18/19 10:22 92 H 98 08/18/19 10:17 89 97 08/18/19 10:12 88 98 08/18/19 10:07 87 98 08/18/19 10:05 88 128/73 08/18/19 10:02 88 97 08/18/19 09:57 91 H 98 08/18/19 09:52 88 97 08/18/19 09:47 97.6 F 89 22 98 08/18/19 09:42 87 98 08/18/19 09:37 89 98 08/18/19 09:32 89 97 08/18/19 09:27 87 98 08/18/19 09:22 87 97 08/18/19 09:17 83 98 08/18/19 09:12 86 97 08/18/19 09:07 84 98 08/18/19 09:05 85 139/93 08/18/19 09:02 81 96 08/18/19 08:57 70 98 08/18/19 08:52 86 98 08/18/19 08:47 79 96 08/18/19 08:42 80 96 08/18/19 08:37 83 96 08/18/19 08:32 84 97 08/18/19 08:27 84 97 08/18/19 08:22 86 98 08/18/19 08:17 91 H 98 08/18/19 08:12 85 97 08/18/19 08:07 79 97 08/18/19 08:02 81 97 08/18/19 07:57 87 97 08/18/19 07:52 84 134/71 96 08/18/19 07:47 83 96 08/18/19 07:43 85 177/87 08/18/19 07:42 92 H 99 08/18/19 07:37 82 92 08/18/19 07:32 82 91 08/18/19 07:28 85 95 08/18/19 07:26 86 93 08/18/19 07:22 82 164/81 97 08/18/19 07:20 85 94 08/18/19 07:18 84 95 08/18/19 07:15 85 94 08/18/19 07:12 79 97 08/18/19 07:08 86 98 08/18/19 07:02 89 98 08/18/19 06:58 92 H 99 08/18/19 06:52 85 182/91 94 08/18/19 06:50 84 93 08/18/19 06:48 84 96 08/18/19 06:43 78 97 08/18/19 06:42 74 94 08/18/19 06:41 81 179/98 08/18/19 06:40 81 179/98 08/18/19 06:37 77 99 08/18/19 06:32 77 97 08/18/19 06:31 88 179/98 08/18/19 06:30 86 86 08/18/19 06:27 74 96 08/18/19 06:25 76 91 08/18/19 06:23 84 97 08/18/19 06:22 77 202/93 08/18/19 06:20 81 87 08/18/19 06:18 77 98 08/18/19 06:15 77 93 08/18/19 06:12 82 99 08/18/19 06:07 82 91 08/18/19 06:06 72 93 08/18/19 06:02 74 98 08/18/19 06:01 76 93 08/18/19 05:57 77 97 08/18/19 05:52 79 184/86 96 08/18/19 05:51 81 92 08/18/19 05:47 78 96 08/18/19 05:46 77 89 08/18/19 05:42 71 98 08/18/19 05:41 76 94 08/18/19 05:37 75 92 08/18/19 05:34 75 92 08/18/19 05:32 72 93 08/18/19 05:28 75 93 08/18/19 05:27 80 95 08/18/19 05:23 77 93 08/18/19 05:22 77 181/91 95 08/18/19 05:17 78 98 08/18/19 05:12 93 H 98 08/18/19 05:10 89 93 08/18/19 05:07 83 86 08/18/19 05:05 74 89 08/18/19 05:02 84 92 08/18/19 05:00 78 94 08/18/19 04:57 77 96 08/18/19 04:55 86 85 18/19 04:52 76 176/109 95 18/19 04:49 90 88 18/19 04:47 80 96 0818/19 04:44 92 H 87 18/19 04:42 89 96 08/18/19 04:39 83 92 18/19 04:37 81 91 0818/19 04:33 83 89 18/19 04:32 77 91 0818/19 04:28 81 90 18/19 04:27 76 97 18/19 04:22 81 159/88 96 18/19 04:18 77 168/92 18/19 04:17 80 98 18/19 04:12 85 97 18/19 04:08 83 167/103 08/18/19 04:07 83 98 08/18/19 04:02 87 99 08/18/19 03:57 88 98 /18/19 03:56 85 92 18/19 03:52 81 174/102 96 /18/19 03:49 77 90 08/18/19 03:47 78 98 08/18/19 03:44 77 92 0818/19 03:42 78 98 18/19 03:38 83 94 18/19 03:37 86 96 08/18/19 03:32 87 93 08/18/19 03:31 74 94 08/18/19 03:27 89 94 08/18/19 03:25 83 94 08/18/19 03:22 84 184/89 98 08/18/19 03:19 89 90 08/18/19 03:17 81 97 08/18/19 03:12 78 97 08/18/19 03:08 84 86 08/18/19 03:07 90 93 18/19 03:03 90 88 18/19 03:02 78 98 18/19 02:57 76 99 08/18/19 02:52 80 144/83 97 18 02:47 80 97 03/10/19 02:42 81 98 03/10/19 02:41 81 94 03/10/19 02:37 79 97 03/10/19 02:33 88 93 03/10/19 02:32 76 98 03/10/19 02:27 80 98 03/10/19 02:23 89 169/76 03/10/19 02:22 93 H 98 03/10/19 02:18 86 94 03/10/19 02:17 91 H 91 03/10/19 02:13 86 94 03/10/19 02:12 85 97 03/10/19 02:08 86 93 03/10/19 02:07 84 96 03/10/19 02:02 87 96 03/10/19 01:57 80 97 03/10/19 01:52 82 120/66 96 03/10/19 01:47 84 96 03/10/19 01:42 82 97 03/10/19 01:37 92 H 97 03/10/19 01:32 86 98 03/10/19 01:27 88 97 03/10/19 01:22 83 125/65 97 03/10/19 01:17 87 98 03/10/19 00:52 77 140/77 03/10/19 00:22 86 148/89 03/09/19 23:52 84 138/72 03/09/19 23:19 83 163/92 03/09/19 23:09 81 163/94 03/09/19 22:59 82 158/86 03/09/19 22:50 83 166/96 03/09/19 22:40 87 179/93 03/09/19 22:25 86 169/87 03/09/19 22:10 87 178/90 03/09/19 21:55 88 181/90 03/09/19 21:52 85 175/91 03/09/19 21:40 85 175/91 03/09/19 20:04 88 195/104 03/09/19 19:04 82 176/93 03/09/19 18:04 90 142/84 03/09/19 17:04 92 H 158/79 03/09/19 16:04 94 H 132/65 08/17/19 15:04 95 H 130/66 03/09/19 14:04 83 122/68 03/09/19 13:30 98.1 F 88 20 98/45 100 03/09/19 13:15 80 14 106/67 100 03/09/19 13:00 78 16 110/61 99 03/09/19 12:45 80 17 110/56 99 03/09/19 12:30 76 18 110/60 99 03/09/19 12:25 78 105/57 99 03/09/19 12:20 97.7 F 77 18 105/60 99 Intake and Output 03/09/19 03/10/19 03/10/19 22:59 06:59 14:59 Intake Total 50 1000 Output Total 500 Balance -450 1000 Intake: IV 50 1000 ANCEF/NS 1 GM/50 ML 1 gm 50 In 50 ml @ 100 mls/hr IV Q8H [facility] Rx#:[id number] Lactated Ringers 1,000 ml 1000 @ 75 mls/hr IV DIRECT [facility] Rx#:[id number] Output: Urine 500 Indwelling Catheter 500 Other: Total, Output Amount 110 - Labs Labs: Abnormal lab results 03/09/19 03/09/19 03/10/19 Range/Units 19:19 23:32 06:55 POC Glucose (70-105) Magnesium 5.70 H 6.30 H 5.10 H (1.7-2.3) mg/dL 03/10/19 Range/Units 09:46 POC Glucose 157 H (70-105) Magnesium (1.7-2.3) mg/dL
[2019-03-10] MEDS: PRENATAL VITAMIN PO SCH (09:46)
[2019-03-10] MEDS: COLACE PO PRN (09:46)
[2019-03-10] MEDS ORDERED: APRESOLINE IV PRN (11:00)
[2019-03-10] MEDS ORDERED: TORADOL IV PRN (12:00)
[2019-03-10] MEDS ORDERED: BOOSTRIX IM ONE (12:30)
--- NOTE | 2019-03-10 14:44 | Event Note ---
Date: 03/10/19 BP's noted, s/w ALEXANDRA Frazier, last BP documented at 1233. Order given to hold transfer, check BP now and call to .
[2019-03-10] MEDS ORDERED: PROCARDIA XL PO SCH (16:08)
--- NOTE | 2019-03-10 17:29 | Event Note ---
Date: 03/10/19 S/W ALEXANDRA Frazier, states BP's stable, patient doing well, instructions/order given to transfer to
[2019-03-10] MEDS ORDERED: TYLENOL PO PRN (17:37)
[2019-03-10] MEDS: PERCOCET 5/325 PO PRN ×2 (18:10→23:54)
--- NOTE | 2019-03-10 19:07 | Event Note ---
Date: 03/10/19 Recv'd call from ALEXANDRA Frazier, stating pt now on MB, no complaints, first BP 160/100, order given to rechk BP in 39minutes and call to MD.
[2019-03-10] MEDS: IBUPROFEN PO PRN (23:55)
[2019-03-11] MEDS: IBUPROFEN PO PRN ×2 (06:41→18:11)
[2019-03-11] MEDS: NORMODYNE PO SCH ×3 (08:38→20:51)
[2019-03-11] MEDS ORDERED: PROCARDIA XL PO SCH ×2 (10:00→22:00)
[2019-03-11] MEDS: PRENATAL VITAMIN PO SCH (10:05)
[2019-03-11] MEDS: COLACE PO PRN (10:09)
--- NOTE | 2019-03-11 13:00 | Progress Note ---
Assessment and Plan - Patient Problems (1) delivery delivered Onset Date: ~03/09/19 Current Visit: Yes Status: Acute Plan to address problem: Continue pathway. Will plan D/C tomorrow if stable. Encouraged out-of-bed for shower. (2) Pre-eclampsia Onset Date: ~02/07/19 Current Visit: No Status: Acute Qualifiers: Trimester: third trimester Qualified Code(s): O14.93 - Unspecified pre- eclampsia, third trimester Plan to address problem: Pt continues to have outlier BP's. 200/100s. Denies headache, blurry vision, and chest pain. Will continue Labetalol and Procardia. Pt to notify nursing staff with onset of headache, blurred vision, or chest pain. Dr. Romero consulted. Subjective - Subjective Date of service: 03/11/19 (Pt in good spirits) Principal diagnosis: PPD2 s/p rpt c/s with BTL; CHTN with severe pre-e Patient reports: appetite normal, voiding normally, pain well controlled, bowel movement, ambulating normally : doing well Objective - Vital Signs Latest vital signs: Vital Signs Temp Pulse Resp BP BP Pulse Ox 03/11/19 08:21 86 200/109 03/11/19 08:20 98.5 F 84 18 176/110 03/11/19 07:41 18 03/11/19 06:41 18 03/11/19 04:24 74 18 146/85 98 03/11/19 00:55 18 03/11/19 00:54 18 03/11/19 00:27 97.7 F 82 18 123/72 97 03/10/19 23:55 18 03/10/19 23:54 18 03/10/19 20:52 82 141/86 03/10/19 20:22 82 141/86 98 03/10/19 19:10 18 03/10/19 18:25 98.4 F 83 18 163/100 98 03/10/19 17:26 84 99 03/10/19 17:21 82 100 03/10/19 17:16 90 99 03/10/19 17:11 84 98 03/10/19 17:06 87 98 03/10/19 17:02 86 94 03/10/19 17:01 85 94 03/10/19 16:56 86 99 08/18/19 16:51 81 100 18/19 16:46 80 100 18/19 16:45 78 132/62 18/19 16:42 97.4 F L 24 18/19 16:41 82 98 18/19 16:36 83 99 18/19 16:31 83 97 18/19 16:30 81 153/92 18/19 16:26 83 96 18/19 16:21 88 98 18/19 16:16 88 97 18/19 16:15 82 133/70 18/19 16:11 89 98 18/19 16:07 85 94 18/19 16:06 86 98 18/19 16:01 88 99 18/19 16:00 86 142/76 18/19 15:56 85 98 18/19 15:51 89 99 18/19 15:46 90 100 18/19 15:45 87 155/92 18/19 15:41 86 97 18/19 15:36 87 97 18/19 15:31 83 100 18/19 15:30 85 167/96 18/19 15:26 89 98 18/19 15:21 86 99 18/19 15:16 83 99 18/19 15:15 86 178/106 18/19 15:11 88 97 18/19 15:06 92 H 98 18/19 15:01 92 H 97 18/19 15:00 89 186/113 1819 14:56 89 98 18/19 14:54 89 0 L 18/19 14:51 91 H 186/113 98 18/19 14:46 92 H 99 18/19 14:45 85 186/113 18/19 13:39 81 L 18/19 13:38 93 H 98 18/19 13:33 87 98 18/19 13:28 89 97 18/19 13:22 87 96 18/19 13:18 88 97 18/19 13:13 88 97 18/19 13:08 89 97 18/19 13:03 87 98 08/18/19 12:58 88 98 Intake and Output 03/10/19 03/11/19 03/11/19 22:59 06:59 14:59 Intake Total 480 Output Total 100 600 Balance -100 -600 480 Intake: Oral 480 Output: Urine 100 600 Void 100 600 Other: Total, Intake Amount 480 Total, Output Amount 100 600 # Voids Void 1 - Exam Breasts: Present: normal (pt successfully pumping) Cardiovascular: Present: Regular rate Lungs: Present: Clear to auscultation Abdomen: Present: normal appearance, soft, normal bowel sounds Uterus: Present: normal, firm, fundal height below umbilicus Extremities: Present: normal, edema Deep Tendon Reflex Grade: Normal +2 Incision: Present: normal, dry, intact
[2019-03-11] MEDS: PERCOCET 5/325 PO PRN ×2 (18:20→23:42)
[2019-03-12] MEDS: PERCOCET 5/325 PO PRN (05:37)
--- NOTE | 2019-03-12 10:33 | Progress Note ---
Assessment and Plan - Patient Problems (1) Chronic hypertension with exacerbation during in third trimester Current Visit: Yes Status: Chronic Plan to address problem: Per RN BP 170-180s/100s this AM. BP appear to be elevated early AM even on Procardia 30mg XL BID. Will increase to 60mg XL and observe today. POC d/w pt. Agrees and understands. (2) Gestational diabetes mellitus (GDM) during controlled on oral hypoglycemic therapy Onset Date: ~02/11/19 Current Visit: Yes Status: Acute (3) History of Crohn's disease Current Visit: Yes Status: Acute (4) Previous section Onset Date: ~02/07/19 Current Visit: Yes Status: Acute (5) Sickle cell trait Current Visit: Yes Status: Acute (6) Sterilization Current Visit: Yes Status: Acute (7) Asthma Current Visit: Yes Status: Acute Subjective - Subjective Date of service: 03/12/19 Principal diagnosis: POD3 s/p rpt c/s with BTL; CHTN with severe pre-e Patient reports: appetite normal, voiding normally, pain well controlled, flatus, ambulating normally Objective - Vital Signs Latest vital signs: Vital Signs Temp Pulse Resp BP BP Pulse Ox 03/12/19 05:37 18 03/12/19 05:21 98.2 F 89 20 150/90 99 03/12/19 00:00 98.9 F 83 20 131/75 96 03/11/19 23:42 20 03/11/19 20:51 97.8 F 86 20 155/86 95 03/11/19 18:38 87 171/107 03/11/19 18:20 18 03/11/19 18:11 18 03/11/19 17:37 151/95 03/11/19 16:29 99.5 F 104 H 18 151/95 03/11/19 11:24 185/97 Intake and Output 03/11/19 03/12/19 03/12/19 22:59 06:59 14:59 Intake Total 720 Balance 720 Intake: Oral 720 Other: Total, Intake Amount 240 Weight 120.202 kg - Exam Narrative Exam: Sitting in bed with visitor at bedside. No complaints.
[2019-03-12] MEDS: NORMODYNE PO SCH ×3 (10:44→23:46)
[2019-03-12] MEDS: PROCARDIA XL PO SCH ×2 (10:45→23:05)
[2019-03-12] MEDS: PRENATAL VITAMIN PO SCH (10:46)
[2019-03-12] MEDS: IBUPROFEN PO PRN (16:56)
--- NOTE | 2019-03-13 07:25 | Discharge Summary ---
Providers - Providers Date of Admission: 03/08/19 16:02 Date of discharge: 03/13/19 (Pt anxious for d/c; denies any ARRIAZA, blurred vision, chest pain) Attending physician: CLARITZA TAN 03/09/19 12:22 Consult to Intern [CONS] Routine Reason For Exam: Primary care physician: CLARITZA TAN Hospitalization Reason for admission: other (hypertension/PreE control) Delivery: Procedure: bilateral tubal ligation, repeat low transverse Episiotomy: none Laceration: none Incision: normal, dry, intact Other procedures: none complications: none Discharge diagnosis: other (Repeat section with tubal) baby: male Hospital course: Pt here for control of hypertension Will d/c on Labetalol and Procardia Uncomplicated repeat section with bilateral tubal ligation Pt resting No c/o voiced BP 140-130/70 on current antihypertensive regime FF below umb Lochia scant Incision D&I H&H stable No s/sx of anemia Doing well s/p section P: d/c today with instructions Pt will take BP at home and call with any readings of 160/100, ARRIAZA, blurred vision, chest pain RTO Monday for Incision check and BP check. RX provided @ d/c Condition at discharge: Good Disposition: DC-01 TO HOME OR SELFCARE - Discharge Diagnoses (1) delivery delivered Status: Acute Comment: RTO Monday03/18/19 for postop (2) Pre-eclampsia Status: Acute Qualifiers: Trimester: third trimester Qualified Code(s): O14.93 - Unspecified pre- eclampsia, third trimester Comment: RTO Monday03/18/19 for BP check (3) Gestational diabetes mellitus (GDM) during controlled on oral hypoglycemic therapy Status: Acute Comment: pt will need to schedule a 2hr GTT @ 6 weeks Plan - Discharge Medications Prescriptions: Lidocain2.5%/Prilocai2.5% [Emla] 5 gm TP ONCE #1 tube Labetalol [Labetalol 100mg TAB] 600 mg PO TID #90 tablet Ibuprofen [Motrin 800 MG tab] 800 mg PO TID PRN #30 tablet PRN Reason: Pain oxyCODONE /ACETAMINOPHEN [Percocet 5/325 mg] 1 - 2 tab PO Q4HR PRN #20 tablet PRN Reason: Pain NIFEdipine XL [Procardia Xl] 60 mg PO Q12HR #30 tab - Provider Discharge Summary Activity: routine, no sex for 6 weeks, no heavy lifting 4 weeks, no strenuous exercise Diet: routine Instructions: routine Additional instructions: [] Smoking cessation referral if applicable(refer to patient education folder for contact #) [] Refer to [facility] Book[facility] Call your doctor immediately for: * Fever > 100.5 * Heavy vaginal bleeding ( >1 pad per hour) * Severe persistent headache * Shortness of breath * Reddened, hot, painful area to leg or breast * Drainage or odor from incision. * Keep incision clean and dry at all times and follow doctor's instructions regarding bathing/showering - Follow up plan Follow up: CLARITZA TAN MD [Primary Care Provider] - 03/18/19 (Congratulations! Please call [phone] to schedule your postoperative visit and your son's circumcision, one week. Please schedule a blood pressure check for Monday03/18/19. As a reminder you will need a 2hr glucose test at 6 weeks . Please take medications as prescribed. Bring EMLA cream with you to the office for circumcision. Do NOT use at home. Call with headache not relieved with Tylenol, blurred vision, chest pain. Call with concerns.)
[2019-03-13] MEDS: NORMODYNE PO SCH (08:33)
[2019-03-13] MEDS: PRENATAL VITAMIN PO SCH (08:34)
[2019-03-13] MEDS: PROCARDIA XL PO SCH (10:27)
[2019-03-13] MEDS: PERCOCET 5/325 PO PRN (10:28)
[2019-03-13 12:42] VITALS: BP 130/67
== END 2019-03-13 14:00 | disposition home or self-care (01) | DRG 784 ==
LOC: TRG 17:15 → LD 17:28 → TRG 17:28 → LD 03-08 13:00 → INTOOBSV 03-08 15:53 → LD 03-08 15:53 → UNDOADMOB 03-08 15:53 → LD 03-08 16:02 → OBSVTOIN 03-08 16:02 → OB 03-10 18:34
PROVIDERS: ADMIT Obstetrics & Gynecology; ATTEND Obstetrics & Gynecology
PROC: 10D00Z1 Extraction of Products of Conception, Low, Open Approach (ICD-10-PCS; 2019-03-09)
PROC: 0UB70ZZ Excision of Bilateral Fallopian Tubes, Open Approach (ICD-10-PCS; 2019-03-09)
PROC: 3E0234Z Introduction of Serum, Toxoid and Vaccine into Muscle, Percutaneous Approach (ICD-10-PCS; principal; 2019-03-10)
DX: O24.425 Gestational diabetes mellitus in childbirth, controlled by oral hypoglycemic drugs (principal); O16.3 Unspecified maternal hypertension, third trimester; K50.90 Crohn's disease, unspecified, without complications; O10.92 Unspecified pre-existing hypertension complicating childbirth; Z3A.35 35 weeks gestation of pregnancy; Z37.0 Single live birth; O36.5930 Maternal care for other known or suspected poor fetal growth, third trimester, not applicable or unspecified; D57.3 Sickle-cell trait; Z23 Encounter for immunization; O99.52 Diseases of the respiratory system complicating childbirth; J45.909 Unspecified asthma, uncomplicated; Z88.8 Allergy status to other drugs, medicaments and biological substances; Z91.013 Allergy to seafood; O99.02 Anemia complicating childbirth; O34.211 Maternal care for low transverse scar from previous cesarean delivery; Z91.19 Patient's noncompliance with other medical treatment and regimen; O11.4 Pre-existing hypertension with pre-eclampsia, complicating childbirth; O99.62 Diseases of the digestive system complicating childbirth
CPT/HCPCS: 36415; 82565; 82570; 82575; 82962; 83615; 83735; 84156; 84450; 84460; 84550; 85014; 85018; 85025; 85027; 86850; 86900; 86901; 87116; 88302; 88307; 93005; 93010; G0378; J0360; J0690; J0702; J1170; J1885; J2270; J2405; J2590; J2765; J3475; J3490; J7050; J7120